=== PATIENT | male | born 1965 | race Caucasian/White ===

== ENCOUNTER 2017-07-10 10:47 | Emergency (ER) | payer BC, OTHER ==
[2017-07-10 10:57] VITALS: TEMP 98.3; BMI 28.8
--- NOTE | 2017-07-10 11:03 | PDOC ---
History of Present Illness - General History Source: Patient Exam Limitations: No Limitations - History of Present Illness Initial Comments: 07/10/17 11:39 The patient is a 52 year old male, with significant past medical history of HLD , who presents to the emergency room complaining of 2 hours of epigastric pain that started while eating a BLT with turkey giordano this morning for breakfast. The abdominal pain is nonradiating. He notes that this pain sometimes occurs after eating fatty food. Denies fever, chills, nausea, vomiting. Denies diarrhea. Denies chest pain, SOB. Denies any urinary symptoms. Allergies: Penicillin Social history: tobacco use. Occasional alcohol use. <Anusha Pride - Last Filed: 07/10/17 13:40> <Betty Juares - Last Filed: 07/10/17 13:48> - General Chief Complaint: Pain Stated Complaint: STOMACH PAIN Time Seen by Provider: 07/10/17 11:01 Past History <Anusha Pride - Last Filed: 07/10/17 13:40> - Past Medical History Anemia: No Asthma: No Cancer: No Cardiac Disorders: No CVA: No COPD: No CHF: No Dementia: No Diabetes: No GI Disorders: No Disorders: No HTN: No Hypercholesterolemia: Yes Liver Disease: No Seizures: No Thyroid Disease: No - Surgical History Abdominal Surgery: No Appendectomy: Yes Cardiac Surgery: No Cholecystectomy: No Lung Surgery: No Neurologic Surgery: No Orthopedic Surgery: No - Psycho/Social/Smoking Cessation Hx Anxiety: Yes Suicidal Ideation: No Smoking History: Current every day smoker Have you smoked in the past 12 months: Yes Number of Cigarettes Smoked Daily: 30 Information on smoking cessation initiated: No 'Breaking Loose' booklet given: 09/11/15 Hx Alcohol Use: No Drug/Substance Use Hx: No Substance Use Type: None Hx Substance Use Treatment: No <Betty Juares - Last Filed: 07/10/17 13:48> - Past Medical History Allergies/Adverse Reactions: Allergies Allergy/AdvReac Type Severity Reaction Status Date / Time Penicillins Allergy Verified 07/10/17 10:57 Home Medications: Ambulatory Orders Fenofibrate,Micronized [Fenofibrate] 43 mg PO DAILY 12/12/12 Aspirin [ASA -] 81 mg PO DAILY #10 02/23/13 Review of Systems - Review of Systems Able to Perform ROS?: Yes Comments:: 07/10/17 11:39 GENERAL/CONSTITUTIONAL: No fever or chills. No weakness. HEAD, EYES, EARS, NOSE AND THROAT: No change in vision. No ear pain or discharge. No sore throat. GASTROINTESTINAL: +epigastric pain. No nausea, vomiting, diarrhea or constipation. GENITOURINARY: No dysuria, frequency, or change in urination. CARDIOVASCULAR: No chest pain or shortness of breath. RESPIRATORY: No cough, wheezing, or hemoptysis. MUSCULOSKELETAL: No joint or muscle swelling or pain. No neck or back pain. SKIN: No rash NEUROLOGIC: No headache, vertigo, loss of consciousness, or change in strength/ sensation. ENDOCRINE: No increased thirst. No abnormal weight change. HEMATOLOGIC/LYMPHATIC: No anemia, easy bleeding, or history of blood clots. ALLERGIC/IMMUNOLOGIC: No hives or skin allergy. <Anusha Pride - Last Filed: 07/10/17 13:40> *Physical Exam - Vital Signs Last Vital Signs Temp Pulse Resp BP Pulse Ox 98.3 F 97 H 18 149/97 99 07/10/17 10:53 07/10/17 10:53 07/10/17 10:53 07/10/17 10:53 07/10/17 10:53 - Physical Exam Comments: 07/10/17 11:40 Constitutional: Awake, alert, oriented. Appears uncomfortable. Head: Normocephalic. Atraumatic Eyes: PERRL. EOMI. Conjunctivae are not pale. ENT: Mucous membranes are moist and intact. Posterior pharynx without exudates or erythema. Uvula midline. Neck: Supple. Full ROM. No lymphadenopathy. Cardiovascular: Regular rate. Regular rhythm. S1, S2 regular. Distal pulses are 2+ and symmetric. Pulmonary/Chest: No evidence of respiratory distress. Clear to auscultation bilaterally No wheezing, rales or rhonchi. Abdominal: +Ames sign. +epigastric tenderness and umbilical tenderness. Soft and nondistended. No rebound, guarding or rigidity. No organomegaly. No palpable masses. Good bowel sounds. Back: No CVA tenderness. Musculoskeletal: No edema. No cyanosis. No clubbing. Full range of motion in all extremities. Nocalf tenderness. Radial/pedal pulses are intact and 2+ bilaterally Skin: Skin is warm and dry. No petechiae. No purpura. Neurological: Alert and oriented to person, place, and time. Cranial nerves II -XII are grossly intact. Normal speech. Strength is grossly symmetric. No sensory deficits. Psychiatric: Good eye contact. Normal interaction, affect and behavior. <Anusha Pride - Last Filed: 07/10/17 13:40> - Vital Signs Last Vital Signs Temp Pulse Resp BP Pulse Ox 98.3 F 97 H 18 149/97 99 07/10/17 10:53 07/10/17 10:53 07/10/17 10:53 07/10/17 10:53 07/10/17 10:53 <Betty Juares - Last Filed: 07/10/17 13:48> Heart Score/ECG Review - ECG Intrepretation Comment:: 07/10/17 11:47 sinus at 91, nl axis, nl intervals, t wave inversions III, early repol anteriorly, no acute changes <Betty Juares - Last Filed: 07/10/17 13:48> ED Treatment Course - LABORATORY CBC & Chemistry Diagram: 07/10/17 11:30 07/10/17 11:30 - RADIOLOGY Radiograph Interpretation: 07/10/17 12:53 EXAM#: TYPE/EXAM: RESULT: [id number] US/ABDOMEN US -LIMITED HISTORY PROVIDED: Right upper quadrant pain. Real time examination of the abdomen demonstrates the following: The gallbladder is normal in size and free of calculi with no evidence of intra or extrahepatic biliary duct dilatation. The liver is normal in size. It is hyperechoic in texture consistent with diffuse fatty infiltration. There is a lobulated cyst within the left lobe measuring 3.1 x 2.8 x 2.1 cm and a smaller right lobe cyst measuring 2.1 x 1.9 x 1.9 cm. No solid intrahepatic masses are identified. The pancreas is normal in size and texture with no pancreatic masses identified. There is no evidence of hydronephrosis or acute abnormalities of the right kidney. There is no evidence of AAA. The IVC is patent. IMPRESSION: Diffuse fatty infiltration of the liver. Reported By: Angelo Engel MD 07/10/17 1240 - Medications Given in the ED: ED Medications Discontinued Medications Generic Name Dose Route Start Last Admin Trade Name Milla PRN Reason Stop Dose Admin Morphine Sulfate 4 mg 07/10/17 11:15 07/10/17 11:36 Morphine Injection - IVPUSH 07/10/17 11:16 4 mg ONCE ONE Administration Ondansetron HCl 4 mg 07/10/17 11:15 07/10/17 11:36 Zofran Injection IVPUSH 07/10/17 11:16 4 mg ONCE ONE Administration Sodium Chloride 1,000 ml 07/10/17 11:15 07/10/17 11:36 Normal Saline - IV 07/10/17 11:16 1,000 ml ONCE ONE Administration <Anusha Pride - Last Filed: 07/10/17 13:40> - LABORATORY CBC & Chemistry Diagram: 07/10/17 11:30 07/10/17 11:30 <Betty Juares - Last Filed: 07/10/17 13:48> Medical Decision Making - Medical Decision Making 07/10/17 13:40 Reeval - belly is soft nontender No complaints at this time No abdominal pain. No nausea, vomiting, diarrhea. Discussed lab and imaging results with him Discussed follow up with gastroenterology. sees Dr. Seaman and agreed to follow up with him. <Anusha Pride - Last Filed: 07/10/17 13:40> - Medical Decision Making 07/10/17 11:52 a/p: 52yo male with acute onset of mid abd pain after eating a BLT -concern for cholecystitis vs pancreatitis vs gastritis -labs -RUQ u/s -ekg -ua -ivf hydration, pain control 07/10/17 13:47 discussed all lab and imaging results. pt without pain at this time. will follow with PMD dr. michelle and with dr. yoo. discussed all reasons to return to the ED and reasons for follow up. <Betty Juares - Last Filed: 07/10/17 13:48> *DC/Admit/Observation/Transfer - Attestations Scribe Attestion: 07/10/17 11:40 Documentation prepared by CARMELO Segundo, acting as medical screener for Betty Juares DO. <Anusha Pride - Last Filed: 07/10/17 13:40> - Discharge Dispostion Admit: No - Attestations Physician Attestion: 07/10/17 13:39 I, Dr. Betty Juares, DO, attest that this document has been prepared under my direction and personally reviewed by me in its entirety. I further attest, that it accurately reflects all work, treatment, procedures and medical decision -making performed by me. <Betty Juares - Last Filed: 07/10/17 13:48> Diagnosis at time of Disposition: Abdominal pain, Fatty liver - Discharge Dispostion Disposition: HOME Condition at time of disposition: Stable - Referrals Referrals: Casandra Seaman MD [Staff Physician] - - Patient Instructions Printed Discharge Instructions: DI for Abdominal Pain-Adult Additional Instructions: Please follow up with your PMD and the GI specialist. Please return to the ED with any further concerns. - Post Discharge Activity Work/School Note: Back to Work
[2017-07-10] MEDS ORDERED: morphine CARPU-JECT 4 MG/1 ML DISP.SYRIN IVPUSH ONE (11:15)
[2017-07-10] MEDS ORDERED: SODIUM CHLORIDE 0.9% 1000 ML INFUS.BAG IV ONE (11:15)
[2017-07-10] MEDS ORDERED: ONDANSETRON 4 MG/2 ML VIAL IVPUSH ONE (11:15)
[2017-07-10] MEDS ORDERED: ONDANSETRON 4 MG/2 ML VIAL ONE (11:27)
[2017-07-10] MEDS ORDERED: morphine CARPU-JECT 4 MG/1 ML DISP.SYRIN ONE (11:27)
[2017-07-10 11:39] LABS: BASOPHIL 1.3 % (0-2.0); MCH 28.4 pg (25.7-33.7); MCHC 33.1 g/dl (32.0-35.9); MEAN PLT VOLUME 7.6 fl (7.5-11.1); NEUTROPHILS 57.8 % (42.8-82.8); PLATELET COUNT 251 K/MM3 (134-434); RDW 15.1 % (11.9-15.9); WHITE BLOOD COUNT 9.2 K/mm3 (4.0-10.0)
[2017-07-10 12:23] LABS: ANION GAP 10 (8-16); CALCIUM 9.7 mg/dL (8.5-10.1); CO2 25 mmol/L (21-32); CREATININE 1.2 mg/dL (0.7-1.3); GLUCOSE,RANDOM 104 mg/dL (74-106); SGOT/AST 17 U/L (15-37); SGPT/ALT 36 U/L (12-78)
[2017-07-10 12:24] LABS: ALK PHOS 54 U/L (45-117); BILIRUBIN,TOTAL 0.6 mg/dL (0.2-1.0); TOT PROT 7.5 g/dl (6.4-8.2)
[2017-07-10 13:11] LABS: URINE APPEARANCE CLEAR; URINE BILIRUBIN NEGATIVE (NEGATIVE); URINE BLOOD NEGATIVE (NEGATIVE); URINE COLOR LTYELLOW; URINE GLUCOSE (UA) NEGATIVE (NEGATIVE); URINE KETONE NEGATIVE (NEGATIVE); URINE LEUK ESTERASE NEGATIVE (NEGATIVE); URINE NITRITE NEGATIVE (NEGATIVE); URINE PROTEIN NEGATIVE (NEGATIVE); URINE UROBILINOGEN NEGATIVE mg/dL (0.2-1.0)
[2017-07-10 13:15] VITALS: BP 133/88; PULSE 87
--- NOTE | 2017-07-12 16:41 | EKG ---
Test Reason : Blood Pressure : / mmHG Vent. Rate : 091 BPM Atrial Rate : 091 BPM P-R Int : 162 ms QRS Dur : 096 ms QT Int : 332 ms P-R-T Axes : 054 005 019 degrees QTc Int : 408 ms NORMAL SINUS RHYTHM NORMAL ECG WHEN COMPARED WITH ECG OF 12-DEC-2012 09:33, NO SIGNIFICANT CHANGE WAS FOUND Confirmed by MARCUS SHELTON MD ([id number]) on 07/12/2017 4:41:20 PM Referred By: Confirmed By:MARCUS SHELTON MD
== END 2017-07-10 14:02 | disposition home or self-care (01) ==
LOC: JER 10:47
PROC: 3E033NZ Introduction of Analgesics, Hypnotics, Sedatives into Peripheral Vein, Percutaneous Approach (ICD-10-PCS; principal; 2017-07-10)
PROC: 3E033GC Introduction of Other Therapeutic Substance into Peripheral Vein, Percutaneous Approach (ICD-10-PCS; 2017-07-10)
DX: R10.13 Epigastric pain (principal); K76.0 Fatty (change of) liver, not elsewhere classified; E78.00 Pure hypercholesterolemia, unspecified; F17.210 Nicotine dependence, cigarettes, uncomplicated
CPT/HCPCS: 36415; 76705-TC; 80053; 81003; 83690; 85025; 93005; 93010; 99283-25

== ENCOUNTER 2017-07-14 19:56 | Inpatient (IN) | payer BC ==
[2017-07-14] MEDS ORDERED: morphine CARPU-JECT 4 MG/1 ML DISP.SYRIN ONE ×2 (20:37→22:24)
[2017-07-14] MEDS ORDERED: ONDANSETRON 4 MG/2 ML VIAL ONE (20:37)
[2017-07-14 20:46] LABS: EOSINOPHIL 4.1 % (0-4.5); MCH 28.5 pg (25.7-33.7); MCHC 33.4 g/dl (32.0-35.9); MEAN CELL VOLUME 85.2 fl (80-96); MEAN PLT VOLUME 7.8 fl (7.5-11.1); NEUTROPHILS 51.1 % (42.8-82.8); PLATELET COUNT 311 K/MM3 (134-434); RDW 14.9 % (11.9-15.9); WHITE BLOOD COUNT 11.9 K/mm3 (4.0-10.0)
[2017-07-14 20:58] LABS: INR 0.99 (0.82-1.09); PROTHROMBIN TIME (PATIENT) 10.9 SEC (9.98-11.88)
--- NOTE | 2017-07-14 21:02 | PDOC ---
History of Present Illness - General Chief Complaint: Pain Stated Complaint: PAIN ACUTE Time Seen by Provider: 07/14/17 20:31 History Source: Patient Exam Limitations: No Limitations - History of Present Illness Initial Comments: This is a 52 yom with h/o HLD, NAFLD, and appendectomy who presents with 10/10 constant sharp non-radiating upper abdominal pain since 6:30 pm today. He was resting at the onset of pain and had not eaten for hours beforehand. He has tried Tums and Gas-Ex since the onset without relief. He has additionally had more gas than normal today, and is nauseated now but has not vomited. He denies any particularly fatty meals recently. He had a similar episode 5 days ago for which he was seen here in the ED, had basic labs and an abdominal ultrasound, and no obvious cause was found. His pain resolved here with morphine and he was asymptomatic until this evening. He has not followed up with his PCP's office or gastroenterology yet. He denies any recent fever, chills, vomiting, diarrhea , constipation, black or white or bloody stool, chest pain, shortness of breath , back pain, testicular pain/swelling/lumps, burning on urination, blood in the urine, strange smells to the urine, urinary frequency, abdominal bulges or lumps , or other recent symptoms. Past History - Past Medical History Allergies/Adverse Reactions: Allergies Allergy/AdvReac Type Severity Reaction Status Date / Time Penicillins Allergy Verified 07/14/17 20:01 Home Medications: Ambulatory Orders Fenofibrate,Micronized [Fenofibrate] 43 mg PO DAILY 12/12/12 Aspirin [ASA -] 81 mg PO DAILY #10 12/17/12 Anemia: No Asthma: No Cancer: No Cardiac Disorders: No CVA: No COPD: No CHF: No Dementia: No Diabetes: No GI Disorders: No Disorders: No HTN: No Hypercholesterolemia: Yes Liver Disease: No Seizures: No Thyroid Disease: No - Surgical History Abdominal Surgery: No Appendectomy: Yes Cardiac Surgery: No Cholecystectomy: No Lung Surgery: No Neurologic Surgery: No Orthopedic Surgery: No - Suicide/Smoking/Psychosocial Hx Smoking History: Current every day smoker Have you smoked in the past 12 months: Yes Number of Cigarettes Smoked Daily: 30 Information on smoking cessation initiated: No 'Breaking Loose' booklet given: 11/18/15 Hx Alcohol Use: No Drug/Substance Use Hx: No Substance Use Type: None Hx Substance Use Treatment: No Review of Systems - Review of Systems Constitutional: No: Chills, Fever, Unexplained wgt Loss HEENTM: No: Nose Congestion, Throat Pain Respiratory: No: Cough, Shortness of Breath Cardiac (ROS): No: Chest Pain, Palpitations ABD/GI: Yes: Nausea, Other (abdominal pain). No: Constipated, Diarrhea, Vomiting : No: Burning, Dysuria Musculoskeletal: No: Back Pain, Neck Pain Integumentary: No: Bruising, Rash Neurological: No: Headache, Numbness, Tingling, Weakness, Dizziness Endocrine: No: Unexplained Weight Gain, Unexplained Weight Loss *Physical Exam - Vital Signs Last Vital Signs Temp Pulse Resp BP Pulse Ox 98.5 F 95 H 20 149/75 98 07/14/17 20:01 07/14/17 20:01 07/14/17 20:01 07/14/17 20:01 07/14/17 20:01 - Physical Exam General Appearance: Yes: Nourished, Appropriately Dressed, Mild Distress, Other (mildly diaphoretic) HEENT: positive: EOMI, Normal Voice, Hearing Grossly Normal. negative: Scleral Icterus (R), Scleral Icterus (L), Nasal Congestion Neck: positive: Trachea midline, Supple. negative: Tender, Rigid Respiratory/Chest: positive: Lungs Clear, Normal Breath Sounds. negative: Respiratory Distress, Crackles, Rhonchi, Stridor, Wheezing Cardiovascular: positive: Regular Rhythm, Regular Rate. negative: Murmur Gastrointestinal/Abdominal: positive: Normal Bowel Sounds, Tender (moderate epigastric and RUQ tenderness, positive Nina's sign, abdomen protuberant which does limit the exam but no obvious midline pulsatile mass or organomegaly) , Soft. negative: Guarding Musculoskeletal: positive: Normal Inspection. negative: Decreased Range of Motion, Vertebral Tenderness Extremity: positive: Normal Capillary Refill, Normal Inspection, Normal Range of Motion. negative: Tender, Cyanosis Integumentary: positive: Normal Color, Dry, Warm. negative: Erythema, Rash, Bruising Neurologic: positive: carton wrapper II-XII NML intact (grossly), Fully Oriented, Alert, Normal Mood/Affect, Normal Response, Motor Strength 5/5 Heart Score/ECG Review - History History: Slightly suspicious - Electrocardiogram EKG: Normal - Age Age: 45-65 - Risk Factors Risk Factors Heart Score: Yes Hx Hypercholesterolemia Based on the list above the patient has:: 1-2 risk factors - Troponin Troponin: </= normal limit - Score Heart Score - Total: 2 #1 ECG reviewed & interpreted by me at: 00:00 NSR, rate 78, VGy=370, normal EKG ED Treatment Course - LABORATORY CBC & Chemistry Diagram: 07/14/17 20:30 07/14/17 20:30 - ADDITIONAL ORDERS Additional order review: 07/14/17 20:30 RBC 5.58 MCV 85.2 MCHC 33.4 RDW 14.9 MPV 7.8 Neutrophils % 51.1 Lymphocytes % 34.8 D Monocytes % 9.0 Eosinophils % 4.1 Basophils % 1.0 - RADIOLOGY Radiology Studies Ordered: Category Date Time Status ABDOMEN & PELVIS CT WITH CONTR [CT] Stat CT Scan 07/14/17 20:[address] abdomen/pelvis with PO and IV contrast does show cholelithiasis with cholecystitis Medical Decision Making - Medical Decision Making 52 yom with h/o HLD p/w recurrence of epigastric abdominal pain and nausea similar to ED visit 5d ago. Had US gallbladder and labs at that time which were unremarkable, sxs resolved with morphine in ED that visit. Today was resting at onset, had not eaten recently. On exam abdomen is protuberant but normoactive bowel sounds, epigastric and RUQ ttp, no obvious pulsatile masses. Ordered is IV morphine 4 mg and Zofran. 07/14/17 21:31 DDX includes but is not limited to PUD, gastritis, cholecystitis, cholangitis, pancreatitis, SBO, AAA, diverticulitis, renal stone, UTI/pyelo. Ordered is CT abdomen/pelvis with IV and PO contrast. 07/15/17 01:01 CBCD and CMP result with mild WBC elevation, Cr 1.4, NS 1000 cc ordered. Pt also given second dose of morphine for recurrence of pain. Ativan ordered for CT study as patient gets claustrophobic. 07/15/17 04:42 Abdomen/Pelvis CT suggests cholelithiasis with cholecystitis. Patient is admitted to [facility] and surgery consult will be placed. The patient is given Levaquin-Flagyl here in the ED. *DC/Admit/Observation/Transfer Diagnosis at time of Disposition: Cholecystitis with cholelithiasis Qualifiers: Cholelithiasis location: gallbladder Cholecystitis acuity: unspecified acuity Biliary obstruction: without biliary obstruction Qualified Code(s): K80.00 - Calculus of gallbladder with acute cholecystitis without obstruction - Discharge Dispostion Condition at time of disposition: Guarded Admit: Yes - Referrals Referrals: Stephani Macedo MD [Primary Care Provider] -
[2017-07-14 21:23] LABS: ANION GAP 7 (8-16); CO2 25 mmol/L (21-32); CREATININE 1.4 mg/dL (0.7-1.3); GLUCOSE,RANDOM 124 mg/dL (74-106); SGOT/AST 19 U/L (15-37); SGPT/ALT 42 U/L (12-78)
[2017-07-14 21:26] LABS: ALK PHOS 52 U/L (45-117); BILIRUBIN,TOTAL 0.4 mg/dL (0.2-1.0); CPK 171 IU/L (39-308); TOT PROT 7.5 g/dl (6.4-8.2); TROPONIN I < 0.02 ng/ml (0.00-0.05)
[2017-07-14] MEDS ORDERED: morphine CARPU-JECT 4 MG/1 ML DISP.SYRIN IVPUSH ONE (22:16)
[2017-07-15] MEDS ORDERED: LORazepam 1 MG TABLET PO ONE (00:45)
[2017-07-15] MEDS ORDERED: SODIUM CHLORIDE 1,000 ML IV STA (01:10)
[2017-07-15] MEDS ORDERED: LORazepam 0.5 MG TABLET ONE (01:17)
[2017-07-15] MEDS ORDERED: LEVOFLOXACIN 750 MG IVPB 150 ML IVPB ONE ×2 (04:47→06:22)
[2017-07-15] MEDS ORDERED: METRONIDAZOLE 500 MG PREMIXED 100 ML IVPB ONE ×2 (04:47→06:58)
[2017-07-15] MEDS ORDERED: morphine CARPU-JECT 2 MG/1 ML DISP.SYRIN IVPUSH PRN (05:15)
--- NOTE | 2017-07-15 06:04 | HP ---
CHIEF COMPLAINT: Abdominal Pain HISTORY OF PRESENT ILLNESS: Mr. Claudio is a 52yo M w/ PMHx of HLD and NAFLD who presents with 1 day of constant, sharp epigastric pain which radiated to both sides. The pain was 10/ 10 originally, but was relieved with morphine. The patient had a similar episode 5 days ago, presented to the ER, had a negative RUQ ultrasound, attributed to gastritis, but this episode is much worse. He had associated fevers last night, and nausea. Denies vomitting, diarrhea, constipation. Denies CP or SOB at rest or w/ exertion. States he is physically active, only limited by knee pain. ER course was notable for: (1) + Nina's sign (2) Tachy (95) + Elevated WBC (11.9) (3) CT abd --> suggestive of cholecystitis w/ gallstones (4) IV Morphine Recent Travel: Denies PAST MEDICAL HISTORY: HLD, NAFLD PAST SURGICAL HISTORY: L partial knee replacement, Appendectomy Social History: Lives w/ , works in sanitation Smokin - 1.5ppd smoker Alcohol: Occasional Drugs: Denies Family History: Noncontributory Allergies: Penicillins Allergy (Verified 07/14/17 20:01) HOME MEDICATIONS: Home Medications Medication Instructions Recorded Fenofibrate,Micronized 43 mg PO DAILY 12/12/12 [Fenofibrate] Aspirin [ASA -] 81 mg PO DAILY #10 12/17/12 REVIEW OF SYSTEMS CONSTITUTIONAL: Absent: fever, chills, diaphoresis, generalized weakness, malaise, loss of appetite, weight change HEENT: Absent: rhinorrhea, nasal congestion, throat pain, throat swelling, difficulty swallowing, mouth swelling, ear pain, eye pain, visual changes CARDIOVASCULAR: Absent: chest pain, syncope, palpitations, irregular heart rate, lightheadedness , peripheral edema RESPIRATORY: Absent: cough, shortness of breath, dyspnea with exertion, orthopnea, wheezing, stridor, hemoptysis GASTROINTESTINAL: Absent: vomiting, diarrhea, constipation, melena, hematochezia Present: abdominal pain, nausea GENITOURINARY: Absent: dysuria, frequency, urgency, hesitancy, hematuria, flank pain, genital pain MUSCULOSKELETAL: Absent: myalgia, arthralgia, joint swelling, back pain, neck pain SKIN: Absent: rash, itching, pallor HEMATOLOGIC/IMMUNOLOGIC: Absent: easy bleeding, easy bruising, lymphadenopathy, frequent infections ENDOCRINE: Absent: unexplained weight gain, unexplained weight loss, heat intolerance, cold intolerance NEUROLOGIC: Absent: headache, focal weakness or paresthesias, dizziness, unsteady gait, seizure, mental status changes, bladder or bowel incontinence PSYCHIATRIC: Absent: anxiety, depression, suicidal or homicidal ideation, hallucinations. PHYSICAL EXAMINATION Vital Signs - 24 hr 07/14/17 20:01 Temperature 98.5 F Pulse Rate 95 H Respiratory 20 Rate Blood Pressure 149/75 O2 Sat by Pulse 98 Oximetry (%) GEN: AAOx3, NAD, Lying comfortably, states pain has improved w/ morphine HEENT: PERRLA, EOMi, No cervical LAD CV: S1, S2, RRR LUNG: CTABL ABD: Distended, tenderness to deep palpation in epigastrium, neg [place], normoactive BS MSK: No edema, no erythema, 2+ pulses NEURO: CN 2-12 intact. Facial symmetry intact. No sensation deficits. MSK 5/5, Reflexes 2+ Laboratory Results - last 24 hr 07/14/17 07/14/17 07/14/17 20:30 20:30 20:30 WBC 11.9 H RBC 5.58 Hgb 15.9 Hct 47.5 MCV 85.2 MCH 28.5 MCHC 33.4 RDW 14.9 Plt Count 311 D MPV 7.8 Neutrophils % 51.1 Lymphocytes % 34.8 D Monocytes % 9.0 Eosinophils % 4.1 Basophils % 1.0 PT with INR 10.90 INR 0.99 Sodium 137 Potassium 3.8 Chloride 105 Carbon Dioxide 25 Anion Gap 7 L BUN 18 Creatinine 1.4 H Creat Clearance w eGFR 53.01 Random Glucose 124 H Calcium 9.0 Total Bilirubin 0.4 D AST 19 ALT 42 Alkaline Phosphatase 52 Creatine Kinase 171 Creatine Kinase Index 0.5 CK-MB (CK-2) 0.863 Troponin I < 0.02 Total Protein 7.5 Albumin 4.0 Lipase 07/14/17 20:30 WBC RBC Hgb Hct MCV MCH MCHC RDW Plt Count MPV Neutrophils % Lymphocytes % Monocytes % Eosinophils % Basophils % PT with INR INR Sodium Potassium Chloride Carbon Dioxide Anion Gap BUN Creatinine Creat Clearance w eGFR Random Glucose Calcium Total Bilirubin AST ALT Alkaline Phosphatase Creatine Kinase Creatine Kinase Index CK-MB (CK-2) Troponin I Total Protein Albumin Lipase 165 Active Medications Generic Name Dose Route Start Last Admin Trade Name Freq PRN Reason Stop Dose Admin Sodium Chloride 1,000 mls @ 100 mls/hr 07/15/17 05:15 07/15/17 06:19 Normal Saline - IV 100 mls/hr ASDIR KRISTINE Administration Metronidazole 100 mls @ 100 mls/hr 07/15/17 14:00 Flagyl 500mg Premixed Ivpb - IVPB Q8H-IV KRISTINE Levofloxacin 150 mls @ 100 mls/hr 07/16/17 06:00 Levaquin 750 Mg Premixed Ivpb - IVPB 07/16/17 07:29 ONCE ONE Morphine Sulfate 1 mg 07/15/17 05:15 Morphine Injection - IVPUSH Q4H PRN PAIN IMAGING: CT Abd/Pelvis w/ contrast --> Findings suggestive of cholelithiasis w/ cholecystitis ASSESSMENT/PLAN: Pt is a 52yo M w/ PMHx of HLD who presented with epigastric pain with radiological findings suggestive of cholelithiasis and cholecystitis # Cholecystitis - IV Levofloxacin 750mg daily (one time dosing) - IV Flagyl 500mg Q8H - Surgery consulted - NPO for possible surgery - IVNS @ 100cc/hr - T+S, Coags # Elevated Cr - From 1.2 --> 1.4 - F/u BMP with IVF # Hx of HLD - Hold home Fenofibrate # Preventative Health - Hold home ASA 81mg # FEN - Fluids: IVNS @ 100cc/hr - Electrolytes: WNL - Nutrition: NPO for possible surgery # Prophylaxis - DVT: Low risk - SCDs - GI: Not indicated - Deconditioning: PT ordered # Dispo - Admit to Med/surg - Await surgery reccs Case d/w Dr. Lira and Dr. Chikis Swanson MD - PGY1 Internal Medicine Visit type - Emergency Visit Emergency Visit: Yes ED Registration Date: 07/15/17 Care time: The patient presented to the Emergency Department on the above date and was hospitalized for further evaluation of their emergent condition. - New Patient This patient is new to me today: Yes Date on this admission: 07/15/17 - Critical Care Critical Care patient: No
[2017-07-15] MEDS: SODIUM CHLORIDE 1,000 ML IV SCH ×2 (06:19→10:01)
--- NOTE | 2017-07-15 06:44 | PN ---
Teaching Attending Note Name of Resident: Pao Swanson ATTENDING PHYSICIAN STATEMENT I saw and evaluated the patient. I reviewed the resident's note and discussed the case with the resident. I agree with the resident's findings and plan as documented. SUBJECTIVE: 52 year old male presents 1 day history of abdominal pain 08/03. ER course was notable for: (1) + Nina's sign (2) Tachy (95) + Elevated WBC (11.9) (3) CT abd --> suggestive of cholecystitis w/ gallstones (4) IV Morphine PAST MEDICAL HISTORY: HLD PAST SURGICAL HISTORY: L partial knee replacement, Appendectomy Social History: Lives w/ , works in [employer] department Smokin - 1.5ppd smoker Alcohol: Occasional Drugs: Denies Family History: Noncontributory Allergies: Penicillins Allergy OBJECTIVE: Vital Signs Temperature 97.9 F 07/15/17 01:56 Pulse Rate 97 H 07/15/17 05:10 Respiratory Rate 20 07/15/17 05:10 Blood Pressure 144/99 07/15/17 05:10 O2 Sat by Pulse Oximetry (%) 99 07/15/17 05:10 HEENT: PERRLA, EOMi, No cervical LAD CV: S1, S2, RRR LUNG: CTABL ABD: Distended, mild RUQ tenderness MSK: No edema, no erythema, 2+ pulses CBC, BMP 07/14/17 20:30 07/14/17 20:30 CT abd - acute demarcus ASSESSMENT AND PLAN: 1. Acute calculous cholecystitis - pain management - NPO -IVAB - surgery evaluation
[2017-07-15 09:17] LABS: MCH 28.7 pg (25.7-33.7); MCHC 33.4 g/dl (32.0-35.9); MEAN CELL VOLUME 85.9 fl (80-96); MEAN PLT VOLUME 7.7 fl (7.5-11.1); PLATELET COUNT 231 K/MM3 (134-434); RDW 15.2 % (11.9-15.9); WHITE BLOOD COUNT 8.3 K/mm3 (4.0-10.0)
[2017-07-15 09:36] LABS: INR 1.06 (0.82-1.09); PROTHROMBIN TIME (PATIENT) 11.7 SEC (9.98-11.88)
[2017-07-15 09:38] LABS: ACTIVATED PTT 30.3 SECONDS (26.9-34.4)
[2017-07-15 09:39] LABS: ANION GAP 2 (8-16); CALCIUM 9.2 mg/dL (8.5-10.1); CO2 31 mmol/L (21-32); CREATININE 1.3 mg/dL (0.7-1.3); GLUCOSE,RANDOM 97 mg/dL (74-106)
[2017-07-15 11:28] VITALS: BMI 28.2
--- NOTE | 2017-07-15 13:17 | PN ---
Physical Exam: SUBJECTIVE: Mr. Claudio is a 52yo M w/ PMHx of HLD and NAFLD who presents with 1 day history of constant, sharp med epigastric pain which radiated to all over his abdomen. The pain was 10/10 originally, but was relieved with morphine to 7/10. The patient had a similar episode 5 days ago, presented to the ER, had a negative RUQ ultrasound, attributed to gastritis, but this episode is much worse. He had associated fevers last night, and nausea. Denies vomitting, diarrhea, constipation. Denies CP or SOB, palpitation. OBJECTIVE: Vital Signs Period Temp Pulse Resp BP Sys/Fernandez Pulse Ox Last 24 Hr 98.0 F-98.5 F 79-97 18-20 120-144/79-99 98-99 GENERAL: The patient is awake, alert, and fully oriented, in no acute distress. HEAD: Normal with no signs of trauma. EYES: conjunctiva clear. No ptosis. ENT: moist mucous membranes. LUNGS: Breath sounds equal, clear to auscultation bilaterally, no wheezes, no crackles, no accessory muscle use. HEART: Regular rate and rhythm, S1, S2 without murmur, rub or gallop. ABDOMEN: Soft, nontender, nondistended, normoactive bowel sounds, no guarding, no rebound. EXTREMITIES: warm, well-perfused, no edema. NEUROLOGICAL: good mentation SKIN: Warm, dry, no rashes or lesions noted Laboratory Results - last 24 hr 07/15/17 07/15/17 07/15/17 08:55 08:55 08:55 WBC 8.3 D RBC 5.62 H Hgb 16.1 Hct 48.3 MCV 85.9 MCH 28.7 MCHC 33.4 RDW 15.2 Plt Count 231 D MPV 7.7 PT with INR 11.70 INR 1.06 PTT (Actin FS) 30.3 Sodium 137 Potassium 4.8 D Chloride 104 Carbon Dioxide 31 D Anion Gap 2 L BUN 13 D Creatinine 1.3 Random Glucose 97 D Calcium 9.2 Blood Type Antibody Screen 07/15/17 08:55 WBC RBC Hgb Hct MCV MCH MCHC RDW Plt Count MPV PT with INR INR PTT (Actin FS) Sodium Potassium Chloride Carbon Dioxide Anion Gap BUN Creatinine Random Glucose Calcium Blood Type O POSITIVE Antibody Screen Negative Active Medications Generic Name Dose Route Start Last Admin Trade Name Freq PRN Reason Stop Dose Admin Sodium Chloride 1,000 mls @ 100 mls/hr 07/15/17 05:15 07/15/17 10:01 Normal Saline - IV 100 mls/hr ASDIR KRISTINE Administration Metronidazole 100 mls @ 100 mls/hr 07/15/17 14:00 Flagyl 500mg Premixed Ivpb - IVPB Q8H-IV KRISTINE Levofloxacin 150 mls @ 100 mls/hr 07/16/17 06:00 Levaquin 750 Mg Premixed Ivpb - IVPB 07/16/17 07:29 ONCE ONE Morphine Sulfate 1 mg 07/15/17 05:15 Morphine Injection - IVPUSH Q4H PRN PAIN CBC, BMP 07/15/17 08:55 07/15/17 08:55 Hepatic Panel Total Bilirubin 0.4 mg/dL (0.2-1.0) D 07/14/17 20:30 AST 19 U/L (15-37) 07/14/17 20:30 ALT 42 U/L (12-78) 07/14/17 20:30 Alkaline Phosphatase 52 U/L (45-117) 07/14/17 20:30 Albumin 4.0 g/dl (3.4-5.0) 07/14/17 20:30 IMAGING: CT Abd/Pelvis w/ contrast: Findings suggestive of cholelithiasis w/ cholecystitis (gall bladder distended, wall thickening,calcified stone in the gallbladder neck, hepatic statosis) liver and spleen with normal size ASSESSMENT/PLAN: Pt is a 52yo M w/ PMHx of HLD who presented with epigastric pain with radiological findings suggestive of cholelithiasis and cholecystitis # Cholecystitis, Acute * IV Levofloxacin 750mg daily (one time dosing) * IV Flagyl 500mg Q8H * Surgery consulted * NPO for possible surgery * IVNS @ 100cc/hr * T+S, Coags * reglan for nausea * Morhine 1 g ivpush q4hr PRN for pain # ELIANE leikely 2/2 dehydration due low oral intake vs hypovolemia vs infection * From 1.2 to 1.4 * F/u BMP with IVF * # Hx of HLD * Hold home Fenofibrate * Hold home ASA 81mg # NAFLD, * f/u as out patient # FEN * Fluids: IVNS @ 100cc/hr * Electrolytes: WNL * Nutrition: NPO for possible surgery # Prophylaxis * DVT: Low risk - SCDs * GI: Not indicated * Deconditioning: PT ordered # Dispo * Admit to Med/surg * Await surgery reccs Visit type - Emergency Visit Emergency Visit: Yes ED Registration Date: 07/15/17 Care time: The patient presented to the Emergency Department on the above date and was hospitalized for further evaluation of their emergent condition. - New Patient This patient is new to me today: Yes Date on this admission: 07/15/17 - Critical Care Critical Care patient: No
--- NOTE | 2017-07-15 13:59 | PN ---
Teaching Attending Note Name of Resident: Rinku Hood ATTENDING PHYSICIAN STATEMENT I saw and evaluated the patient. I reviewed the resident's note and discussed the case with the resident. I agree with the resident's findings and plan as documented. SUBJECTIVE:states pain has improved. continues to have mild epigastric tenderness. requesting to eat. denies Cp, SOB, fever, chills, N/V/C/D OBJECTIVE: Last Vital Signs Temp Pulse Resp BP Pulse Ox 98.0 F 79 18 120/80 98 07/15/17 10:34 07/15/17 10:34 07/15/17 10:34 07/15/17 10:34 07/15/17 09:00 General NAD CV S1 S2 RRR no murmur/rub/gallop Lungs CTA B/L no wheezing/rales/rhonchi ABdomen soft +epigastric tenderness no rebound or guarding. neg becker sign ASSESSMENT AND PLAN: 52yo M with PMH dyslipidemia and NAFLD presented with epigastric tenderness and found to have acute cholecysitits 1. Acute Cholecystitis- NPO for OR today for laprascopic cholecystectomy. cont IVF, Levaquin and Flagyl day 2. pain and nausea control 2. ELIANE-likley dehydration. improved. cont IVF. baseline Cr 1.2. avoid nephrotoxic agents 3. NAFLD 4. DVT ppx- EAM
[2017-07-15] MEDS ORDERED: METOCLOPRAMIDE HCL INJECTION 10 MG/2 ML VIAL IVPB ONE (14:11)
[2017-07-15] MEDS ORDERED: ONDANSETRON 4 MG/2 ML VIAL ONE (14:21)
[2017-07-15] MEDS: METRONIDAZOLE 500 MG PREMIXED 100 ML IVPB SCH ×2 (15:09→18:42)
--- NOTE | 2017-07-15 15:35 | CONSULT ---
Consult Consult Specialty:: Surgery Reason for Consultation:: Abdominal pain - History of Present Illness History of Present Illness: 52 male presents for epigastric/RUQ abdominal pain x 1-2 days No fevers + Nausea 1st episode - History Source History Provided By: Patient, Medical Record Limitations to Obtaining History: No Limitations - Alcohol/Substance Use Hx Alcohol Use: No - Smoking History Smoking history: Current every day smoker Have you smoked in the past 12 months: Yes Aproximately how many cigarettes per day: 30 Home Medications - Allergies Allergies/Adverse Reactions: Allergies Allergy/AdvReac Type Severity Reaction Status Date / Time Penicillins Allergy Verified 07/14/17 20:01 - Home Medications Home Medications: Ambulatory Orders Fenofibrate,Micronized [Fenofibrate] 43 mg PO DAILY 12/12/12 Aspirin [ASA -] 81 mg PO DAILY #10 12/17/12 Family Disease History - Family Disease History Family History: Unremarkable Review of Systems - Review of Systems Constitutional: denies: Chills, Fever HENT: reports: No Symptoms Neck: reports: No Symptoms Cardiovascular: denies: Chest Pain Respiratory: denies: Cough Gastrointestinal: reports: Abdominal Pain, Nausea. denies: Diarrhea Neurological: denies: Change in LOC Pain Intensity: 4 Physical Exam Vital Signs: Vital Signs Temperature 98.4 F 07/15/17 15:12 Pulse Rate 83 07/15/17 15:12 Respiratory Rate 16 07/15/17 15:12 Blood Pressure 122/78 07/15/17 15:12 O2 Sat by Pulse Oximetry (%) 98 07/15/17 09:00 Constitutional: Yes: Calm HENT: Yes: WNL Neck: Yes: Supple Cardiovascular: Yes: Regular Rate and Rhythm Respiratory: Yes: CTA Bilaterally Gastrointestinal: Yes: Soft, Tenderness (RUQ), Tenderness, Epigastrium Extremities: Yes: WNL Neurological: Yes: Alert, Oriented Labs: CBC, BMP 07/15/17 08:55 07/15/17 08:55 Imaging - Results Cat Scan: Report Reviewed, Image Reviewed Problem List - Problems (1) Cholecystitis with cholelithiasis Code(s): K80.10 - CALCULUS OF GALLBLADDER W CHRONIC CHOLECYST W/O OBSTRUCTION Qualifiers: Cholelithiasis location: gallbladder Cholecystitis acuity: unspecified acuity Biliary obstruction: without biliary obstruction Qualified Code(s ): K80.00 - Calculus of gallbladder with acute cholecystitis without obstruction (2) Acute cholecystitis due to biliary calculus Code(s): K80.00 - CALCULUS OF GALLBLADDER W ACUTE CHOLECYST W/O OBSTRUCTION Assessment/Plan 52 male with acute cholecystitis NPO IV fluids For laparoscopic possible open cholecystectomy Understands and agrees
[2017-07-15] MEDS ORDERED: MIDAZOLAM HCL 2 MG/2 ML SINGLE DOSE VIAL ONE (19:24)
[2017-07-15] MEDS ORDERED: PROPOFOL 20 ML ONE ×3 (19:24→20:35)
[2017-07-15] MEDS ORDERED: ONDANSETRON 4 MG/2 ML VIAL IVPUSH PRN ×2 (19:37→21:56)
[2017-07-15] MEDS ORDERED: oxyCODONE HCL 5 MG TABLET PO PRN ×3 (19:37→21:56)
[2017-07-15] MEDS ORDERED: HYDROmorphone HCL CARPU-JECT 1 MG/1 ML DISP.SYRIN IVPUSH PRN (19:37)
[2017-07-15] MEDS ORDERED: LACTATED RINGERS SOLUTION 1,000 ML IV SCH (19:45)
[2017-07-15] MEDS ORDERED: DESFLURANE GAS 240 ML BOTTLE IH ONE (19:50)
[2017-07-15] MEDS ORDERED: HYDROCORTISONE SOD SUCCINATE 2 ML ONE (20:06)
[2017-07-15] MEDS ORDERED: HYDROmorphone HCL/PF 1 MG/ML VIAL (FOR PYXIS CHARGING ONLY) ONE (20:06)
[2017-07-15] MEDS ORDERED: GLYCOPYRROLATE 0.2 MG/1 ML VIAL ONE ×2 (20:07→21:13)
[2017-07-15] MEDS ORDERED: NEOSTIGMINE METHYLSULFATE 0.5 MG/ML - 10 ML MDV ONE (20:07)
[2017-07-15] MEDS ORDERED: DEXAMETHASONE SOD PHOSPHATE 4 MG/1 ML VIAL ONE (20:09)
[2017-07-15] MEDS ORDERED: BUPIVACAINE HCL/PF (5 MG/ML) 30 ML VIAL IJ ONE (21:03)
--- NOTE | 2017-07-15 21:26 | OP ---
Operative Note - Note: Operative Date: 07/15/17 Pre-Operative Diagnosis: Acute cholecystitis Operation: Laparoscopic cholecystectomy, umbilical hernia repair Findings: Umbilical hernia, distended, inflamed gallbladder Post-Operative Diagnosis: Other (Acute cholecystitis, umbilical hernia) Surgeon: Panda Cevallos Hoistman: Lois Carmen Anesthesia: General Specimens Removed: Gallbladder Estimated Blood Loss (mls): 10 Operative Report Dictated: Yes
[2017-07-15] MEDS ORDERED: SODIUM CHLORIDE 1,000 ML IV SCH (21:30)
--- NOTE | 2017-07-15 21:46 | SURG ---
Surgery Greens Laborer Note Greens Laborer: Lois Carmen PA-C Date of Service: 07/15/17 Diagnosis: Acute cholecystitis Procedure: Laparoscopic cholecystectomy, umbilical hernia repair I was present for the entirety of the operative procedure. For further detail, please refer to operative report. Visit type - Case Type Case Type: ED Admission - Emergency Emergency Visit: Yes ED Registration Date: 07/15/17 Care time: The patient presented to the Emergency Department on the above date and was hospitalized for further evaluation of their emergent condition. - New patient This patient is new to me today: Yes Date on this admission: 07/15/17 - Critical Care Critical Care patient: No
[2017-07-15] MEDS ORDERED: HYDROmorphone HCL CARPU-JECT 2 MG/1 ML DISP.SYRIN ONE (22:54)
[2017-07-15] MEDS: HYDROmorphone HCL CARPU-JECT 1 MG/1 ML DISP.SYRIN IVPB PRN (22:55)
[2017-07-16] MEDS: METRONIDAZOLE 500 MG PREMIXED 100 ML IVPB SCH ×2 (01:27→10:38)
[2017-07-16] MEDS: HYDROmorphone HCL CARPU-JECT 1 MG/1 ML DISP.SYRIN IVPB PRN (04:17)
[2017-07-16] MEDS ORDERED: LEVOFLOXACIN 750 MG IVPB 150 ML IVPB ONE (06:00)
[2017-07-16 07:45] LABS: MCH 28.8 pg (25.7-33.7); MCHC 33.3 g/dl (32.0-35.9); MEAN CELL VOLUME 86.5 fl (80-96); MEAN PLT VOLUME 7.7 fl (7.5-11.1); PLATELET COUNT 263 K/MM3 (134-434); RDW 15.1 % (11.9-15.9); WHITE BLOOD COUNT 10.9 K/mm3 (4.0-10.0)
[2017-07-16 08:24] LABS: ALK PHOS 55 U/L (45-117); ANION GAP 10 (8-16); BILIRUBIN,TOTAL 0.6 mg/dL (0.2-1.0); CO2 27 mmol/L (21-32); CREATININE 1.2 mg/dL (0.7-1.3); GLUCOSE,RANDOM 107 mg/dL (74-106); SGOT/AST 27 U/L (15-37); SGPT/ALT 55 U/L (12-78); TOT PROT 7.6 g/dl (6.4-8.2)
[2017-07-16 08:54] VITALS: BP 156/87; PULSE 90; TEMP 97.6
--- NOTE | 2017-07-16 09:19 | PN ---
Progress Note (short form) - Note Progress Note: POD #1 - s/p laparoscopic cholecystectomy under general anesthesia. Pt. doing well, resting comfortably in bed. No complaints. No apparent anesthetic complications noted. Continue current care.
--- NOTE | 2017-07-16 09:28 | SPEC ---
DATE OF OPERATION: 07/15/2017 SURGEON: Brigitte Cevallos MD FITTER PLACER: JORGE Mac PREOPERATIVE DIAGNOSIS: Acute cholecystitis. POSTOPERATIVE DIAGNOSIS: Acute cholecystitis and umbilical hernia. PROCEDURE: Laparoscopic cholecystectomy and umbilical hernia repair. SPECIMEN: Gallbladder. ESTIMATED BLOOD LOSS: 10 mL DRAINS: None. ANESTHESIA: GET. REASON FOR PROCEDURE: This is a 52-year-old gentleman who presents to the hospital with epigastric/right upper quadrant pain. He was found to have evidence of acute cholecystitis on imaging. Because of this, he was consented for a laparoscopic, possible open cholecystectomy. RISKS AND BENEFITS: The risks and benefits of a laparoscopic, possible open cholecystectomy were explained. These included bleeding, infection, hernia, PA, DVT, PE, injury to surrounding structures including the liver, colon, bowel, bile ducts, vessel injury, nerve injury, bile leak, and retained stones as some of the possible complications. The patient understood and signed informed consents. DESCRIPTION OF PROCEDURE: The patient was placed supine on the operating room table. The patient underwent general endotracheal intubation. The abdomen was prepped and draped in the usual sterile fashion. A timeout was performed. A periumbilical incision was made, and a 5-mm optical trocar was inserted under direct visualization with the laparoscope. Pneumoperitoneum was then established. Subsequently, a 5-mm trocar was placed in the subxiphoid area and two 5-mm trocars were placed in the right upper quadrant. The 5-mm trocar at the periumbilical region was removed and a 10-mm trocar was inserted. The patient was placed in reverse Trendelenburg, right side up position. The gallbladder was noted and was retracted cephalad and laterally. Any overlying omental adhesions were carefully dissected. The peritoneum was dissected using electrocautery. The cystic duct followed by the cystic artery was circumferentially dissected, clipped and transected. The gallbladder was removed off the liver bed using electrocautery. Hemostasis of the liver bed and surrounding area was attained using electrocautery. The gallbladder was placed in an EndoCatch bag. Copious irrigation and suction were performed until clear. The gallbladder was removed from the abdominal cavity. The fascia at the 10-mm trocar site was closed using a 0-Vicryl suture. All incision sites were irrigated and Marcaine was injected. Hemostasis of all incision sites was noted. All incision sites were closed using 4-0 Biosyn. Sterile dressings were applied. The patient tolerated the procedure well and was transferred to the recovery room in stable condition. In addition, at the beginning of the procedure, he was noted to have an umbilical hernia. This was used to place the initial trocar. At the end of the laparoscopic cholecystectomy, the umbilical hernia was repaired using a Shaun-Vahe with a 0 Vicryl suture. Patient tolerated the procedure well, was transferred to recovery room in stable condition. BRIGITTE CEVALLOS M.D. [id number]
[2017-07-16] MEDS ORDERED: LEVOFLOXACIN 500 MG IVPB 100 ML IVPB SCH (10:00)
--- NOTE | 2017-07-16 12:33 | DS ---
Physical Exam: SUBJECTIVE: Patient seen and examined at bedside. He has labaroscopic cholecystectomy yesteray. He scot any fever, chills,chest pain, SOB, abdominal pain, N/V/D/C, he is tolerating regular food. Surgery wound is clean and covered by the bandages. OBJECTIVE: Vital Signs Period Temp Pulse Resp BP Sys/Fernandez Pulse Ox Last 24 Hr 97.5 F-98.6 F 83-103 10-20 120-156/76-93 97-100 PHYSICAL EXAM GENERAL: The patient is awake, alert, and fully oriented, in no acute distress. HEAD: Normal with no signs of trauma. EYES: sclera anicteric, conjunctiva clear. ENT: moist mucous membranes. LUNGS: Breath sounds equal, clear to auscultation bilaterally, no wheezes, no crackles, no accessory muscle use. HEART: Regular rate and rhythm, S1, S2 without murmur, rub or gallop. ABDOMEN: Soft, distended, normoactive bowel sounds, no guarding, no rebound tenderness. 4 bandages on his abdomen incision.mild tenderness surrounding incisions EXTREMITIES: warm, well-perfused, no edema. NEUROLOGICAL: Normal speech, gait not observed. SKIN: Warm, dry, no rashes or lesions noted. LABS Laboratory Results - last 24 hr 07/16/17 07/16/17 06:30 06:30 WBC 10.9 H D RBC 5.78 H Hgb 16.6 Hct 50.0 H MCV 86.5 MCH 28.8 MCHC 33.3 RDW 15.1 Plt Count 263 MPV 7.7 Sodium 139 Potassium 4.6 Chloride 102 Carbon Dioxide 27 Anion Gap 10 BUN 10 D Creatinine 1.2 Creat Clearance w eGFR > 60 Random Glucose 107 H Calcium 9.0 Total Bilirubin 0.6 D AST 27 D ALT 55 D Alkaline Phosphatase 55 Total Protein 7.6 Albumin 4.0 CBC, BMP 07/16/17 06:30 07/16/17 06:30 HOSPITAL COURSE: Date of Admission:07/15/17 Date of Discharge: 07/16/17 52yo M with PMH dyslipidemia and NAFLD presented with epigastric tenderness and found to have acute cholecysitits . Gallbladder removed by laprascopic Surgery on 07/15 with no complications. patient tolerated surgery well. received abx for one day and we stoped it after the surgery as no longer necessary. counseled on risks association with pain medications, not to operate or drive heavy machinery while taking and to monitor for constipation. to increase water and fiber intake if needed. to follow instructions by surgeon on discharge plan. Patient developed ELIANE at admission likely secondary to dehydration improved with IV fluids. Cr improved from 1.4 to 1.2 at his base line. Patient will be discharged home home with PMD within a week. and surgical follow up within 2 weeks . Patient may experience a change in bowel habits.Many things affect this, including taking pain medication. If either persist, patient needs to call the surgeon office. if he developed persistent nausea or vomitting he needs to call the surgeon office. Patient will resume normal everyday activity as tolerated, We the patient to walk as often as he can. Patient Patient was informed not to drive a motor vehicle while taking prescribes narcotic pain medication. Patient will take his medicine as prescribed. If the narcotic medication is not needed for pain control, patient may take Tylenol. patient was informed to avoid all other pain medications including Advil, Ibuprofen, Motrin, Aspirin, Naprosyn, Aleve, Celebrex. Patient can continue low cholestrol low fat diet. Patient was informed to return to emergency room if he developed any fever, chills or his symptoms worsen. Answered all patient questions. case was discussed with the attending physician and the medical team. Rinku Hood MD PGY1 Internal medicine. Minutes to complete discharge: 30 Discharge Summary Reason For Visit: CHOLECYSTITIS WITH CHOLELITHIASIS Current Active Problems Acute cholecystitis due to biliary calculus (Acute) Cholecystitis with cholelithiasis (Acute) Condition: Stable - Instructions Diet, Activity, Other Instructions: [facility] Panda Cevallos M.D. [address] [place] [address],[address] [facility] [place] [id number] [place] [address] [facility] [place] [address] Robotic, Bariatric and General Surgery Postoperative Instructions for General Surgery Activity: Resume normal everyday activity as tolerated. You may walk and climb stairs without any limitation. We encourage you to walk as often as you can Do not lift anything more than 10 pounds for 8 weeks. At that time, you can return to full activity, including the gym, without limitation. Do not drive a motor vehicle while taking prescribes narcotic pain medication. Wound Care: If you have a bandage in place, leave it on for 3 days. At that time you may remove the outer bandage. If there are strips of tape on the skin after removing the outer bandage, leave them in place. They will fall off by themselves. Do not remove them. If there is clear glue on the skin after removing the outer bandage, leave it in place. Do not pick at it or peel it off. You may shower after taking the outer bandage off, 3 days after your surgery. For male groin hernia patients: you may notice a black and blue discoloration of your testicles. This is normal and should resolve over the next week or two. If this persists, please call the office. Diet: You may continue your regular diet at home. If you have a history of high blood pressure, you should be on a low sodium diet. If you have a history of Diabetes Mellitus, you should be on a diabetic/sugar controlled diet. If you had your gallbladder removed, you should be on a low cholesterol/low fat diet. Medications/Pain Management: You may resume previous medications unless told otherwise. You may take the prescribed narcotic pain medication as needed. If the narcotic medication is not needed for pain control, you may take Tylenol. Avoid all other pain medications including Advil, Ibuprofen, Motrin, Aspirin, Naprosyn, Aleve, Celebrex. Vomiting/Nausea: This may occur if you eat too fast, don't chew, or eat too much. Go back to fluids. If the vomiting or nausea persists, call the office. Constipation/Diarrhea: You may experience a change in bowel habits. Many things affect this, including taking pain medication. If either persist, call the office. Follow up: Please follow up with your Dr.Jonathan Cevallos (The surgeon) within 2 weeks. Call the office at [phone] for an appointment 2 weeks after your surgical procedure. Referrals: Panda Cevallos MD [Staff Physician] - 2 Weeks Stephani Macedo MD [Primary Care Provider] - 1 Week Disposition: HOME - Home Medications Comprehensive Discharge Medication List: Ambulatory Orders Fenofibrate,Micronized [Fenofibrate] 43 mg PO DAILY 12/12/12 Aspirin [ASA -] 81 mg PO DAILY #10 12/17/12 Docusate Sodium [Colace -] 100 mg PO TID #90 capsule 07/15/17 Oxycodone HCl/Acetaminophen [Percocet 5-325 mg Tablet] 1 - 2 tab PO Q6H #28 tab MDD 4 07/15/17 This patient is new to me today: No Emergency Visit: Yes ED Registration Date: 07/15/17 Care time: The patient presented to the Emergency Department on the above date and was hospitalized for further evaluation of their emergent condition. Critical Care patient: No - Discharge Referral Referred to [facility] Med P.C.: No
--- NOTE | 2017-07-16 12:36 | PN ---
Progress Note (short form) - Note Progress Note: POD 1 Laparoscopic cholecystectomy, umbilical hernia repair Pain controlled On diet Vital Signs Period Temp Pulse Resp BP Sys/Fernandez Pulse Ox Last 24 Hr 97.5 F-98.6 F 83-103 10-20 120-156/76-93 97-100 Abd soft, dressings intact CBC, BMP 07/16/17 06:30 07/16/17 06:30 Doing well Can discharge home Follow up in office in 2 weeks [phone] Problem List - Problems (1) Cholecystitis with cholelithiasis Code(s): K80.10 - CALCULUS OF GALLBLADDER W CHRONIC CHOLECYST W/O OBSTRUCTION Qualifiers: Cholelithiasis location: gallbladder Cholecystitis acuity: unspecified acuity Biliary obstruction: without biliary obstruction Qualified Code(s ): K80.00 - Calculus of gallbladder with acute cholecystitis without obstruction (2) Acute cholecystitis due to biliary calculus Code(s): K80.00 - CALCULUS OF GALLBLADDER W ACUTE CHOLECYST W/O OBSTRUCTION
--- NOTE | 2017-07-16 13:28 | PN ---
Teaching Attending Note Name of Resident: Rinku Hood ATTENDING PHYSICIAN STATEMENT I saw and evaluated the patient. I reviewed the resident's note and discussed the case with the resident. I agree with the resident's findings and plan as documented. SUBJECTIVE:asymptomatic. pain is controlled. tolerating regular diet. denies CP , SOB< fever, chills, N/V/C/D. no flatus or BM yet OBJECTIVE: Last Vital Signs Temp Pulse Resp BP Pulse Ox 97.6 F 90 16 156/87 97 07/16/17 08:53 07/16/17 08:53 07/16/17 09:00 07/16/17 08:53 07/16/17 09:00 General NAD ABdomen soft +distention. bandages over surgical incision are clean/dry. mild tenderness surrounding incisions ASSESSMENT AND PLAN: 52yo M with PMH dyslipidemia and NAFLD presented with epigastric tenderness and found to have acute cholecysitits 1. Acute Cholecystitis-s/p laprascopic cholecystectomy on 07/15. no complications. tolerated surgery well. d/c abx as no longer necessary. counseled on risks assoc with pain medications, not to operate or drive [facility] machinery while taking and to monitor for constipation. to increase water and fiber intake if needed. to follow instructions by surgeon on discharge plan. 2. ELIANE-likley dehydration. resolved. baseline Cr 1.2. avoid nephrotoxic agents 3. NAFLD 4. d/c home with PMD and surgical follow up. answered all questions.
--- NOTE | 2017-07-19 14:13 | PATH ---
Surgical Pathology Report Patient Name: AIME CAIN Med. Rec. #: [id number] /Age/Gender: 1965 (Age: 52) / M Account: [id number] Location: [facility] MED/SURG Taken: 07/15/2017 Received: 07/16/2017 Reported: 07/19/2017 Physicians: Panda Cevallos M.D. Specimen(s) Received GALLBLADDER Clinical History Cholelithiasis Final Diagnosis GALLBLADDER, CHOLECYSTECTOMY: CHRONIC CHOLECYSTITIS, CHOLESTEROLOSIS, AND CHOLELITHIASIS. Electronically Signed Nayan Estrella M.D. Gross Description Received in formalin, labeled "gallbladder," is a 5.5 x 2.0 x 1.7 cm. gallbladder with a 0.2 cm. in length portion of cystic duct attached. The outer surface is khan pantoja with a focal defect and varies from smooth to shaggy. The lumen contains khan, tenacious bile as well as 2 yellow, irregular choleliths measuring 0.3 and 0.5 cm in greatest dimension. The mucosa is khan and focally eroded. The wall of the gallbladder averages 0.2 cm. in thickness. Flour Mixer sections are submitted in one cassette. 07/16/2017 [facility]07/16/2017
--- NOTE | 2017-07-20 20:26 | EKG ---
Test Reason : Blood Pressure : / mmHG Vent. Rate : 078 BPM Atrial Rate : 078 BPM P-R Int : 176 ms QRS Dur : 094 ms QT Int : 360 ms P-R-T Axes : 059 025 034 degrees QTc Int : 410 ms NORMAL SINUS RHYTHM POSSIBLE LEFT ATRIAL ENLARGEMENT BORDERLINE ECG WHEN COMPARED WITH ECG OF 10-JUL-2017 11:43, NO SIGNIFICANT CHANGE WAS FOUND BASELINE ARTIFACTS REPEAT EKG IF CLINICALLY INDICATED Confirmed by FELI TAO MD ([id number]) on 07/20/2017 8:26:19 PM Referred By: Confirmed By:FELI TAO MD
== END 2017-07-16 13:29 | disposition home or self-care (01) | DRG 418 ==
LOC: JER 19:56 → JERBED 07-15 04:50 → J8W 07-15 07:54
PROVIDERS: ADMIT Internal Medicine; ATTEND Internal Medicine
PROC: 0FT44ZZ Resection of Gallbladder, Percutaneous Endoscopic Approach (ICD-10-PCS; principal; 2017-07-15 20:15)
PROC: 0WQF0ZZ Repair Abdominal Wall, Open Approach (ICD-10-PCS; 2017-07-15 20:15)
DX: K80.00 Calculus of gallbladder with acute cholecystitis without obstruction (principal); N17.9 Acute kidney failure, unspecified; E78.5 Hyperlipidemia, unspecified; F17.210 Nicotine dependence, cigarettes, uncomplicated; E86.0 Dehydration; K42.9 Umbilical hernia without obstruction or gangrene
CPT/HCPCS: 36415; 74177-TC; 76000-TC; 80048; 80053; 82553; 83690; 84484; 85025; 85027; 85610; 85730; 86850; 86900; 86901; 87086; 88304-TC; 93005; 93010; 94760; 99285-25

== ENCOUNTER 2017-09-12 12:43 | Emergency (ER) | payer BC ==
--- NOTE | 2017-09-12 12:55 | PDOC ---
History of Present Illness - General Stated Complaint: COUGH Time Seen by Provider: 09/12/17 12:44 - History of Present Illness Initial Comments: 09/12/17 13:05 52yo male presents ambulatory to the ED c/o fevers, cough, sore throat, muscle aching since . Pt states he got sick on and has had a dry cough since. States also with rhinorrhea and sore throat from the cough. States he hasn't been able to sleep because of the cough/congestion. Has been taking tylenol and advil for the fever at home. Last dose of advil was 11am today ( 600mg). Pt has not had the flu shot. Denies sick contacts. Does work outside. Denies cp/sob. States ribs hurt when he coughs. Denies abd pain. NO n/v/d. NO dysuria. No rashes. States he alternates between fevers and chills at home. Pt does smoke tobacco (1.5 packs per day). PMhx: HLD ([place]) PSHx: demarcus, appy, knee (L) Allergies: PCN (vomiting) social: tobacco use daily Past History - Past Medical History Allergies/Adverse Reactions: Allergies Allergy/AdvReac Type Severity Reaction Status Date / Time Penicillins Allergy Verified 07/14/17 20:01 Home Medications: Ambulatory Orders Fenofibrate,Micronized [Fenofibrate] 43 mg PO DAILY 12/12/12 Aspirin [ASA -] 81 mg PO DAILY #10 12/17/12 Acetaminophen W/ Codeine #3 [Tylenol # 3 -] 1 tab PO Q6H PRN #10 tablet MDD 4 tabs 09/12/17 Albuterol Sulfate Inhaler - [Ventolin HFA Inhaler -] 1 - 2 inh PO Q4H #1 inhaler 09/12/17 Levofloxacin [Levaquin] 750 mg PO DAILY #5 tab 09/12/17 Prednisone [Deltasone -] 40 mg PO DAILY #4 tablet 09/12/17 Anemia: No Hypercholesterolemia: Yes - Surgical History Appendectomy: Yes - Suicide/Smoking/Psychosocial Hx Smoking History: Current every day smoker Have you smoked in the past 12 months: Yes Number of Cigarettes Smoked Daily: 30 Cigars Per Day: 0 'Breaking Loose' booklet given: 07/15/17 Hx Alcohol Use: No Drug/Substance Use Hx: No Substance Use Type: None Hx Substance Use Treatment: No Review of Systems - Review of Systems Able to Perform ROS?: Yes Is the patient limited Tamazight proficient: No Constitutional: Yes: Chills, Fever, Weakness. No: Night Sweats HEENTM: Yes: Nose Congestion, Throat Pain. No: Blurred Vision Respiratory: Yes: Cough. No: Shortness of Breath, Wheezing, Productive cough Cardiac (ROS): No: Chest Pain, Irregular Heart Rate, Lightheadedness, Palpitations ABD/GI: No: Abdominal Distended, Diarrhea, Nausea, Vomiting : No: Burning, Dysuria Musculoskeletal: No: Back Pain, Neck Pain Integumentary: No: Rash Neurological: No: Headache, Numbness, Paresthesia, Tingling, Weakness, Unsteady Gait, Ataxia All Other Systems: Reviewed and Negative *Physical Exam - Vital Signs 09/12/17 13:52 Selected Entries 09/12/17 12:43 Temperature 101.5 F H Pulse Rate 126 H Respiratory 18 Rate Respiratory Normal Depth Respiratory Non-Labored Effort Blood Pressure 108/69 O2 Sat by Pulse 95 Oximetry (%) Weight 85.729 kg - Physical Exam Comments: 09/12/17 13:52 gen: aaox3, flushed cheeks, bronchial cough HEENT: TM intact, no redness or bulging, nares boggie, post pharynx with erythema, no exudates neck: supple, no LAD heart: +s1s2 tachy lungs: soft end expiratory wheezing otherwise clear abd: soft, nt/nd +bs Ext: no c/c/e, radial and pedal pulses intact skin: hot to touch, no rashes neuro: cn ii-xii grossly intact, no focal deficits ED Treatment Course - LABORATORY CBC & Chemistry Diagram: 09/12/17 13:20 09/12/17 13:20 Medical Decision Making - Medical Decision Making 09/12/17 13:10 a/p: 52yo male with rhinorrhea, cough, congestion, sore throat, fevers, body aches -concern for bronchitis vs pna vs influenza vs flu like illness -fevers x 4 days labs, xray albuterol for wheezing today ivf hydration tylenol last motrin at 11a reassess 09/12/17 14:15 re-eval: discussed labs and imaging results. flu still pending pt states feeling better after the albuterol treatment no longer tachycardic *DC/Admit/Observation/Transfer Diagnosis at time of Disposition: Acute bronchitis - Discharge Dispostion Disposition: HOME Condition at time of disposition: Stable Admit: No - Prescriptions Prescriptions: Acetaminophen W/ Codeine #3 [Tylenol # 3 -] 1 tab PO Q6H PRN #10 tablet MDD 4 tabs PRN Reason: Cough Albuterol Sulfate Inhaler - [Ventolin HFA Inhaler -] 1 - 2 inh PO Q4H #1 inhaler Levofloxacin [Levaquin] 750 mg PO DAILY #5 tab Prednisone [Deltasone -] 40 mg PO DAILY #4 tablet - Referrals Referrals: Stephani Macedo MD [Primary Care Provider] - - Patient Instructions Printed Discharge Instructions: DI for Acute Bronchitis, DI for Reactive Airway Disease-Adult - Post Discharge Activity Forms/Work/School Notes: Back to Work
[2017-09-12] MEDS ORDERED: ACETAMINOPHEN 1000 MG/100 ML VIAL (NON FORMULARY) IVPB ONE (13:03)
[2017-09-12] MEDS ORDERED: SODIUM CHLORIDE 0.9% 1000 ML INFUS.BAG IV ONE (13:03)
[2017-09-12] MEDS ORDERED: ALBUTEROL SO4 2.5/IPRATROPIUM 0.5 INH SOL 3 ML VIAL.NEB. NEB ONE ×2 (13:03→13:07)
[2017-09-12] MEDS ORDERED: ACETAMINOPHEN INJECTION 100 ML IVPB ONE (13:07)
[2017-09-12 13:47] LABS: BASOPHIL 1.5 % (0-2.0); EOSINOPHIL 1.4 % (0-4.5); MCH 27.8 pg (25.7-33.7); MCHC 33.3 g/dl (32.0-35.9); MEAN CELL VOLUME 83.2 fl (80-96); MEAN PLT VOLUME 8.3 fl (7.5-11.1); NEUTROPHILS 77.7 % (42.8-82.8); PLATELET COUNT 157 K/MM3 (134-434); RDW 14.4 % (11.9-15.9); WHITE BLOOD COUNT 5.3 K/mm3 (4.0-10.8)
[2017-09-12 13:54] LABS: ALBUMIN 3.7 g/dl (3.5-5.0); ALK PHOS 39 U/L (32-92); ANION GAP 8 (8-16); BILIRUBIN,TOTAL 0.6 mg/dl (0.2-1.0); CALCIUM 8.3 mg/dl (8.4-10.2); CO2 25 mmol/L (22-28); CREATININE 1.4 mg/dl (0.6-1.3); GLUCOSE,RANDOM 124 mg/dl (74-106); MAGNESIUM 1.8 mg/dL (1.8-2.4); SGOT/AST 27 U/L (10-42); SGPT/ALT 20 U/L (10-40); TOT PROT 6.7 g/dl (6.4-8.3)
[2017-09-12 14:14] VITALS: BP 108/69; BMI 27.8
[2017-09-12 14:31] VITALS: PULSE 110; TEMP 99
[2017-09-12] MEDS ORDERED: LEVOFLOXACIN 250 MG TABLET (FP) PO ONE (14:36)
[2017-09-12] MEDS ORDERED: LEVOFLOXACIN 250 MG TABLET (FP) ONE (14:47)
[2017-09-12] MEDS ORDERED: LEVOFLOXACIN 500 MG TABLET (FP) ONE ×2 (14:47→14:48)
[2017-09-12] MEDS ORDERED: predniSONE 20 MG TABLET (UD) PO ONE (14:49)
[2017-09-12] MEDS ORDERED: predniSONE 20 MG TABLET (UD) ONE (14:59)
== END 2017-09-12 15:13 | disposition home or self-care (01) ==
LOC: SUPCPDRO 12:43 → FER 12:43
PROC: 3E033GC Introduction of Other Therapeutic Substance into Peripheral Vein, Percutaneous Approach (ICD-10-PCS; principal; 2017-09-12)
PROC: 3E0337Z Introduction of Electrolytic and Water Balance Substance into Peripheral Vein, Percutaneous Approach (ICD-10-PCS; 2017-09-12)
PROC: 3E0F7GC Introduction of Other Therapeutic Substance into Respiratory Tract, Via Natural or Artificial Opening (ICD-10-PCS; 2017-09-12)
DX: J20.9 Acute bronchitis, unspecified (principal); F17.210 Nicotine dependence, cigarettes, uncomplicated; E78.00 Pure hypercholesterolemia, unspecified; Z88.0 Allergy status to penicillin; Z79.82 Long term (current) use of aspirin
CPT/HCPCS: 36415; 71020-TC; 80053; 83735; 85025; 87804; 99283-25

== ENCOUNTER 2018-10-21 13:03 | Emergency (ER) | payer BC ==
--- NOTE | 2018-10-21 13:08 | PDOC ---
History of Present Illness - General Chief Complaint: Respiratory Stated Complaint: cough and congestion x 3 days Time Seen by Provider: 10/21/18 13:05 - History of Present Illness Initial Comments: 10/21/18 13:44 The patient is a 53 year old male with a history of HLD, COPD who presents for evaluation of cough and chest congestion. The patient reports a 3 day history of worsening non-productive cough with associated chest congestion and shortness of breath prompting the patient's presentation for further evaluation. They note that the patient was intubated 1 year ago for pneumonia with ARDS. He states that he has had minimal improvement in home nebulizers. He does note use home O2. He notes some chest pain with coughing but otherwise denies fevers, chills, nausea, vomiting, abdominal pain, or changes with urination or bowel movements. Past History - Past Medical History Allergies/Adverse Reactions: Allergies Allergy/AdvReac Type Severity Reaction Status Date / Time Penicillins Allergy Verified 10/21/18 13:05 Home Medications: Ambulatory Orders Fenofibrate,Micronized [Fenofibrate] 67 mg PO DAILY 12/12/12 Aspirin [ASA -] 81 mg PO DAILY #10 12/17/12 Albuterol Sulfate Inhaler - [Ventolin HFA Inhaler -] 1 - 2 inh PO QID PRN Azithromycin 250 mg PO DAILY #4 tablet 10/21/18 Famotidine [Pepcid] 20 mg PO BID PRN #20 tablet 10/21/18 Prednisone [Deltasone] 60 mg PO DAILY #12 tablet 10/21/18 Anemia: No COPD: Yes Hypercholesterolemia: Yes Psychiatric Problems: Yes (PTSD,) Other medical history: PNEUMONIA,INTUBATION. - Surgical History Appendectomy: Yes Cholecystectomy: Yes - Suicide/Smoking/Psychosocial Hx Smoking History: Former smoker Have you smoked in the past 12 months: Yes Number of Cigarettes Smoked Daily: 15 Cigars Per Day: 0 'Breaking Loose' booklet given: 09/12/17 Hx Alcohol Use: No Drug/Substance Use Hx: No Substance Use Type: None Hx Substance Use Treatment: No Review of Systems - Review of Systems Comments:: 10/21/18 13:51 Constitutional: No fevers, chills, fatigue, malaise HEENT: No Rhinorrhea, nasal congestion, visual changes Cardiovascular: Chest congestion. No syncope, palpitations, lightheadedness Respiratory: SOB, cough. No Hemoptysis, Gastrointestinal: No Abdominal pain, Nausea, Vomiting, Constipation, Diarrhea, Melena Genitourinary: No Dysuria, Frequency, Urgency, Hesitancy, Hematuria, Flank pain Musculoskeletal: No Myalgia, arthralgia Skin: No rashes, itching, bruising, pallor Neurologic: No Headache, Dizziness, Numbness, Weakness, or Tingling Psychiatric: No Hallucinations. No SI or HI *Physical Exam - Physical Exam Comments: 10/21/18 13:52 General Appearance: Nourished. No Apparent Distress HEENT: No Pharyngeal Erythema, Tonsillar Exudate, Tonsillar Erythema Neck: No Cervical Lymphadenopathy Respiratory/Chest: Expiratory wheezing with rhonchi noted on exam. No Crackles , Cardiovascular: Regular Rhythm, Regular Rate. No Murmur, Gallops, Rubs Gastrointestinal/Abdominal: Normal Bowel Sounds, Soft. No Guarding, Rebound, Tenderness Musculoskeletal: No CVA Tenderness Extremity: Normal Capillary Refill Integumentary: Normal Color, Dry, Warm Neurologic: Fully Oriented, Alert, Normal Mood/Affect, Normal Response, ED Treatment Course - LABORATORY CBC & Chemistry Diagram: 10/21/18 13:45 10/21/18 13:45 Medical Decision Making - Medical Decision Making 10/21/18 13:53 The patient is a 53 year old male with a history of HLD, COPD who presents for evaluation of cough and chest congestion. Differential includes but is not limited to: COPD, Pneumonia, bronchitis, Infectious, Metabolic Derangement. Given the patient's history and physical exam, we will obtain a cbc, cmp, troponin, chest plain film, ekg to evaluate further. We will treat with duonebs and oral prednisone and continue to monitor and reassess while here in the ED. 10/21/18 15:15 CBC, cmp, troponin are unremarkable. Chest plain film is unremarkable as read by our radiologist. The patient reports some improvement in his symptoms. We are comfortable discharging the patient home with primary care provider follow up on prednisone and azithromycin. We discussed the results, plan, and return precautions with the patient who voiced understanding and is agreeable with the plan. *DC/Admit/Observation/Transfer Diagnosis at time of Disposition: COPD exacerbation, Acute bronchitis - Discharge Dispostion Disposition: HOME Condition at time of disposition: Stable - Prescriptions Prescriptions: Azithromycin 250 mg PO DAILY #4 tablet Famotidine [Pepcid] 20 mg PO BID PRN #20 tablet PRN Reason: Acid Reflux Prednisone [Deltasone] 60 mg PO DAILY #12 tablet - Referrals Referrals: Kit Rogers MD [Staff Physician] - - Patient Instructions Printed Discharge Instructions: DI for Chronic Obstructive Pulmonary Disease, DI for Acute Bronchitis Additional Instructions: Take the azithromycin as prescribed. Take the prednisone as prescribed. It may take several days before your symptoms improve. - Post Discharge Activity
[2018-10-21 13:10] VITALS: BMI 28.9
[2018-10-21] MEDS ORDERED: ALBUTEROL SO4 2.5/IPRATROPIUM 0.5 INH SOL 3 ML VIAL.NEB. NEB ONE ×2 (13:30→13:39)
[2018-10-21 13:52] LABS: BASO % 0.8 % (0-2.0); HEMATOCRIT 42.3 % (35.4-49); LYMPH % 29.5 % (8-40); MCH 28.1 pg (25.7-33.7); MEAN CELL VOLUME 85.3 fl (80-96); MEAN PLT VOLUME 7.4 fl (7.5-11.1); MONO % 6.7 % (3.8-10.2); PLATELET COUNT 325 K/MM3 (134-434); RBC 4.96 M/mm3 (4.00-5.60); RDW 14.5 % (11.9-15.9); WHITE BLOOD COUNT 7.6 K/mm3 (4.0-10.8)
--- NOTE | 2018-10-21 13:52 | PDOC ---
Attending Attestation - Resident Resident Name: Bakari Clemons - ED Attending Attestation I have performed the following: I have examined & evaluated the patient, The case was reviewed & discussed with the resident, I agree w/resident's findings & plan, Exceptions are as noted - HPI HPI: 10/21/18 14:07 53 year old male c/ hx of COPD, trach s/p reversal, hx of intubation p/w cough x 3 days. 3 days ago, started to developed productive cough and some SOB. Reports some chest pain only with coughing. No fevers, chills. - Physicial Exam PE: 10/21/18 14:39 GENERAL: Awake, alert, and fully oriented, in no acute distress HEAD: No signs of trauma EYES:EOMI, sclera anicteric, conjunctiva clear ENT: Auricles normal inspection, hearing grossly normal, nares patent, NECK: Normal ROM, supple LUNGS: Breath sounds equal, feint expiratory wheezing bilaterally. Coughing throughout exam. HEART: Regular rate and rhythm, normal S1 and S2, no murmurs, rubs or gallops ABDOMEN: Soft, nontenders. No guarding, no rebound. No masses EXTREMITIES: Normal range of motion, no edema. No clubbing or cyanosis. No cords, erythema, or tenderness NEUROLOGICAL: Cranial nerves II through XII grossly intact. Normal speech, normal gait SKIN: Warm, Dry, normal turgor, no rashes or lesions noted. - Medical Decision Making 10/21/18 14:40 Vital Signs Temp Pulse Resp BP Pulse Ox 98.1 F 97 H 16 130/90 98 10/21/18 13:04 10/21/18 13:04 10/21/18 13:04 10/21/18 13:04 10/21/18 13:04 Imp: COPD exacerbation with bronchitis. Chest xray negative for pneumonia. ECG reassuring Duonebs, prednisone, and will likely initiate azithromycin. Once pt feels better and w/u is negative, pt can be d/c home. 10/21/18 14:48 CBC, BMP 10/21/18 13:45 10/21/18 13:45 CMP Sodium 135 mmol/L (136-145) L 10/21/18 13:45 Potassium 4.1 mmol/L (3.5-5.1) 10/21/18 13:45 Chloride 101 mmol/L (98-107) 10/21/18 13:45 Carbon Dioxide 28 mmol/L (22-28) 10/21/18 13:45 Anion Gap 6 MMOL/L (8-16) L 10/21/18 13:45 BUN 21 mg/dl (7-18) H 10/21/18 13:45 Creatinine 1.4 mg/dl (0.6-1.3) H 10/21/18 13:45 Creat Clearance w eGFR 52.81 (>60) 10/21/18 13:45 Random Glucose 109 mg/dl (74-106) H 10/21/18 13:45 Calcium 8.7 mg/dl (8.4-10.2) 10/21/18 13:45 Total Bilirubin 0.6 mg/dl (0.2-1.0) 10/21/18 13:45 AST 30 U/L (10-42) 10/21/18 13:45 ALT 40 U/L (10-40) D 10/21/18 13:45 Alkaline Phosphatase 53 U/L (32-92) 10/21/18 13:45 Creatine Kinase 389 IU/L (26-308) H 10/21/18 13:45 Troponin I < 0.03 ng/ml (0.00-0.06) 10/21/18 13:45 Total Protein 8.0 g/dl (6.4-8.3) 10/21/18 13:45 Albumin 4.4 g/dl (3.5-5.0) 10/21/18 13:45 Chest xray reviewed. No acute findings. Will give azithromycin. Pt breathing comfortably and feels better. I discussed the physical exam findings, ancillary test results and final diagnoses with the patient. I answered all of the patient's questions. The patient was satisfied with the care received and felt comfortable with the discharge plan and treatment plan. The patient will call their primary care physician within 24 hours to arrange follow-up and will return to the Emergency Department with any new, persistant or worsening symptoms. *DC/Admit/Observation/Transfer Diagnosis at time of Disposition: COPD exacerbation Acute bronchitis Qualifiers: Bronchitis organism: unspecified organism Qualified Code(s): J20.9 - Acute bronchitis, unspecified - Discharge Dispostion Disposition: HOME Condition at time of disposition: Stable Decision to Admit order: No - Prescriptions Prescriptions: Azithromycin 250 mg PO DAILY #4 tablet Famotidine [Pepcid] 20 mg PO BID PRN #20 tablet PRN Reason: Acid Reflux Prednisone [Deltasone] 60 mg PO DAILY #12 tablet - Referrals Referrals: Kit Rogers MD [Staff Physician] - - Patient Instructions Printed Discharge Instructions: DI for Acute Bronchitis, DI for Chronic Obstructive Pulmonary Disease Additional Instructions: Take the azithromycin as prescribed. Take the prednisone as prescribed. It may take several days before your symptoms improve. - Post Discharge Activity Heart Score/ECG Review #1 ECG reviewed & interpreted by me at: 13:00 10/21/18 13:52 NSR 93, no std/lolis, normal axis ,normal intervals, Q wave III, TWI III, QTC 440 msec
[2018-10-21] MEDS ORDERED: predniSONE 20 MG TABLET (UD) PO ONE (13:54)
[2018-10-21] MEDS ORDERED: predniSONE 20 MG TABLET (UD) ONE (13:59)
[2018-10-21 14:13] LABS: ALBUMIN 4.4 g/dl (3.5-5.0); ALK PHOS 53 U/L (32-92); ANION GAP 6 MMOL/L (8-16); BILIRUBIN,TOTAL 0.6 mg/dl (0.2-1.0); BLOOD UREA NITROGEN 21 mg/dl (7-18); CALCIUM 8.7 mg/dl (8.4-10.2); CHLORIDE 101 mmol/L (98-107); CO2 28 mmol/L (22-28); CREATININE 1.4 mg/dl (0.6-1.3); GLUCOSE,RANDOM 109 mg/dl (74-106); POTASSIUM 4.1 mmol/L (3.5-5.1); SGOT/AST 30 U/L (10-42); SGPT/ALT 40 U/L (10-40); SODIUM 135 mmol/L (136-145)
[2018-10-21] MEDS ORDERED: CYCLOBENZAPRINE HCL 10 MG TABLET (FP) PO ONE (14:26)
[2018-10-21] MEDS ORDERED: KETOROLAC TROMETHAMINE 30 MG/1 ML VIAL IVPUSH ONE (14:26)
[2018-10-21] MEDS ORDERED: AZITHROMYCIN 500 MG TABLET PO ONE (14:48)
[2018-10-21] MEDS ORDERED: AZITHROMYCIN 250 MG TABLET ONE (15:16)
[2018-10-21 15:31] VITALS: BP 131/94; PULSE 89
[2018-10-21 15:38] VITALS: TEMP 97.7
--- NOTE | 2018-10-22 13:28 | EKG ---
Test Reason : Blood Pressure : / mmHG Vent. Rate : 093 BPM Atrial Rate : 093 BPM P-R Int : 158 ms QRS Dur : 100 ms QT Int : 354 ms P-R-T Axes : 051 014 008 degrees QTc Int : 440 ms NORMAL SINUS RHYTHM POSSIBLE LEFT ATRIAL ENLARGEMENT BORDERLINE ECG WHEN COMPARED WITH ECG OF 16-SEP-2017 11:55, VENT. RATE HAS DECREASED BY 50 BPM QUESTIONABLE CHANGE IN QRS AXIS Confirmed by JACOB NAIK, [place] ([id number]) on 10/22/2018 1:28:02 PM Referred By: JAMIL Confirmed By:[place] JAMES MD
== END 2018-10-21 15:39 | disposition home or self-care (01) ==
LOC: FER 13:03
PROC: 3E0F7GC Introduction of Other Therapeutic Substance into Respiratory Tract, Via Natural or Artificial Opening (ICD-10-PCS; principal; 2018-10-21)
DX: J44.1 Chronic obstructive pulmonary disease with (acute) exacerbation (principal); J20.9 Acute bronchitis, unspecified; E78.5 Hyperlipidemia, unspecified; F43.10 Post-traumatic stress disorder, unspecified; Z88.0 Allergy status to penicillin; Z79.82 Long term (current) use of aspirin; Z87.891 Personal history of nicotine dependence
CPT/HCPCS: 36415; 71045-TC-FY; 80053; 82550; 82553; 84484; 85025; 93005; 99283-25

== ENCOUNTER 2019-01-01 10:41 | Emergency (ER) | payer OTHER, BC ==
[2019-01-01 10:59] VITALS: TEMP 98.3; BMI 30.1
[2019-01-01] MEDS ORDERED: IBUPROFEN 600 MG TABLET (FP) PO ONE ×2 (11:02→11:04)
[2019-01-01] MEDS ORDERED: ALBUTEROL SO4 2.5/IPRATROPIUM 0.5 INH SOL 3 ML VIAL.NEB. NEB ONE ×2 (11:02)
[2019-01-01] MEDS ORDERED: RACEPINEPHRINE IH SOL 2.25% 11.25 MG/0.5 ML VIAL NEB ONE (11:11)
--- NOTE | 2019-01-01 11:36 | PDOC ---
History of Present Illness - General Chief Complaint: Injury Stated Complaint: RIGHT RIB PAIN History Source: Patient Exam Limitations: No Limitations - History of Present Illness Initial Comments: 01/01/19 11:31 53-year-old male history of COPD here today complaining of right rib pain. 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 followng pt states he had severe right rib pain. worse wtih movement and coughing. has had productive cough , uses albuterol intermittently for COPD. no f/c no leg swelling. no other injuries. pain is mildly improved with motrin. Past History - Past Medical History Allergies/Adverse Reactions: Allergies Allergy/AdvReac Type Severity Reaction Status Date / Time Penicillins Allergy Verified 10/21/18 13:05 Home Medications: Ambulatory Orders Fenofibrate,Micronized [Fenofibrate] 67 mg PO DAILY 12/12/12 Aspirin [ASA -] 81 mg PO DAILY #10 12/17/12 Albuterol Sulfate Inhaler - [Ventolin HFA Inhaler -] 1 - 2 inh PO QID PRN Fluticasone/Umeclidin/Vilanter [Trelegy Ellipta 100-62.5-25] 1 each IH DAILY 08/12 Ibuprofen [Motrin -] 600 mg PO TID PRN #90 tablet MDD 3 01/01/19 Mv-Mins/Folic/Lycopene/Ginkgo [One Daily Men's 50+ Tablet] 1 each PO DAILY 01/01 Anemia: No COPD: Yes Hypercholesterolemia: Yes Psychiatric Problems: Yes (PTSD,) Other medical history: ARDS - Surgical History Appendectomy: Yes Cholecystectomy: Yes Lung Surgery: Yes (TRACHEOSTOMY) - Suicide/Smoking/Psychosocial Hx Smoking History: Former smoker Have you smoked in the past 12 months: No Number of Cigarettes Smoked Daily: 15 If you are a former smoker, when did you quit?: 2017 Cigars Per Day: 0 Information on smoking cessation initiated: No 'Breaking Loose' booklet given: 09/12/17 Hx Alcohol Use: No Drug/Substance Use Hx: No Substance Use Type: None Hx Substance Use Treatment: No Review of Systems - Review of Systems Constitutional: No: Chills, Diaphoresis, Fever, Unexplained wgt Loss Respiratory: Yes: Cough, Productive cough Cardiac (ROS): Yes: Chest Pain ABD/GI: No: Abdominal Distended, Nausea, Vomiting : No: Burning, Dysuria, Discharge Integumentary: No: Bruising All Other Systems: Reviewed and Negative *Physical Exam - Vital Signs Last Vital Signs Temp Pulse Resp BP Pulse Ox 98.3 F 108 H 20 139/100 96 01/01/19 10:42 01/01/19 10:42 01/01/19 10:42 01/01/19 10:42 01/01/19 10:42 - Physical Exam Comments: 01/01/19 11:34 awake alert lungs with exp wheezing bilaterally posterior lung palmer at bases. right lower lateral rib ttp. no step off. no crepitus. no noted eccymosis. heart rrr no mrg . abd soft nt nd. no eccymosis. no cva tenderness. ext wwp atraumatic. no edema. Moderate Sedation - Procedure Monitoring Vital Signs: Procedure Monitoring Vital Signs Temperature 98.3 F 01/01/19 10:42 Pulse Rate 108 H 01/01/19 10:42 Respiratory Rate 20 01/01/19 10:42 Blood Pressure 139/100 01/01/19 10:42 O2 Sat by Pulse Oximetry (%) 96 01/01/19 10:42 ED Treatment Course - RADIOLOGY Radiology Studies Ordered: Category Date Time Status RIBS RIGHT SIDE [RAD] Stat Radiology 01/01/19 11:01 Ordered - Medications Given in the ED: ED Medications Discontinued Medications Generic Name Dose Route Start Last Admin Trade Name Freq PRN Reason Stop Dose Admin Albuterol/Ipratropium 1 amp 01/01/19 11:02 01/01/19 11:15 Duoneb - NEB 01/01/19 11:03 1 amp ONCE ONE Administration Ibuprofen 600 mg 01/01/19 11:02 01/01/19 11:10 Motrin - PO 01/01/19 11:03 600 mg ONCE ONE Administration Medical Decision Making - Medical Decision Making 01/01/19 11:34 pt wtih trauma to right lateral chest wall one week ago, here today for persistant pain, coughing with copd. differential pna, ateletctasis. rib fx, ptx. plan cxr duoneb. motrin. if negative. will dc on nebs, and motrin for pain. *DC/Admit/Observation/Transfer Diagnosis at time of Disposition: Rib fracture - Discharge Dispostion Disposition: HOME Condition at time of disposition: Improved Decision to Admit order: No - Prescriptions Prescriptions: Ibuprofen [Motrin -] 600 mg PO TID PRN #90 tablet MDD 3 PRN Reason: Pain - Referrals Referrals: Kit Rogers MD [Primary Care Provider] - - Patient Instructions Printed Discharge Instructions: Chronic Obstructive Pulmonary Disease, Rib Fracture Additional Instructions: you should use your inhalers to help wtih cough, and difficulty breathing every 4 hours. you can take motrin 600 mg every 8 hrs as needed for pain. follow up with your primary doctor. you may continue to have pain for one week. return for fever, worsening shortness of breath or any concerns. there is a questionable fracture on your right 9th rib. this should heal on its own. it is very important to use an incentive spirometer 10 times every 2 hours while awake. to prevent pneumonia. - Post Discharge Activity
[2019-01-01 11:55] VITALS: BP 130/86; PULSE 100
== END 2019-01-01 11:55 | disposition home or self-care (01) ==
LOC: FER 10:41
CPT/HCPCS: 71101-TC-RT-FY; 99282-25

== ENCOUNTER 2021-10-29 12:23 | Inpatient (IN) | payer BC, OTHER ==
[2021-10-29] MEDS ORDERED: DEXAMETHASONE SOD PHOSPHATE 4 MG/1 ML VIAL IVPUSH ONE (15:54)
[2021-10-29] MEDS ORDERED: AZITHROMYCIN IVPB 500 MG in DEXTROSE 5%-WATER - 250 ML IVPB ONE (15:54)
[2021-10-29] MEDS ORDERED: DEXAMETHASONE SOD PHOSPHATE 10 MG/1 ML VIAL ONE (15:59)
[2021-10-29] MEDS ORDERED: AZITHROMYCIN IVPB 500 MG/250 ML BAG IVPB ONE (15:59)
[2021-10-29 16:34] LABS: VENOUS BASE EXCESS -1.1 mmol/L (-2-2); VENOUS O2 SATURATION 89.1 % (70-80); VENOUS PCO2 43.4 mmHg (38-52); VENOUS PH 7.368 (7.310-7.410)
[2021-10-29 16:43] LABS: BASO % 0.1 % (0-2.0); HEMATOCRIT 38.6 % (35.4-49); LYMPH % 10.9 % (8-40); MCH 27.1 pg (25.7-33.7); MCHC 33.7 g/dl (32.0-35.9); MEAN CELL VOLUME 80.6 fl (80-96); MONO % 5.8 % (3.8-10.2); NEUT % 83.2 % (42.8-82.8); PLATELET COUNT 176 10^3/uL (134-434); RBC 4.79 M/mm3 (4.00-5.60); RDW 15.9 % (11.9-15.9); WHITE BLOOD COUNT 4.8 K/mm3 (4.0-10.0)
[2021-10-29 16:52] LABS: INR 1.04 (0.83-1.09); PROTHROMBIN TIME (PATIENT) 12.2 SEC (9.7-13.0)
[2021-10-29 16:54] LABS: ACTIVATED PTT 26.5 SECONDS (25.2-36.5)
[2021-10-29 16:55] LABS: CHLORIDE 102 mmol/L (98-107); SODIUM 138 mmol/L (136-145)
[2021-10-29 16:56] LABS: CALCIUM 8.6 mg/dL (8.5-10.1)
[2021-10-29 16:57] LABS: ALBUMIN 3.5 g/dl (3.4-5.0); ANION GAP 10 MMOL/L (8-16); BLOOD UREA NITROGEN 19.8 mg/dL (7-18); CO2 26 mmol/L (21-32); GLUCOSE,RANDOM 164 mg/dL (74-106)
[2021-10-29 17:00] LABS: CREATININE 1.2 mg/dL (0.55-1.3); SGOT/AST 73 U/L (15-37); SGPT/ALT 92 U/L (13-61)
[2021-10-29 17:02] LABS: BILIRUBIN,TOTAL 0.6 mg/dL (0.2-1); TOT PROT 7.4 g/dl (6.4-8.2)
[2021-10-29 17:03] LABS: ALK PHOS 72 U/L (45-117)
[2021-10-30] MEDS: ASCORBIC ACID 500 MG TABLET (FP) PO SCH ×3 (01:17→21:05)
[2021-10-30 05:11] VITALS: BMI 31.0
[2021-10-30] MEDS ORDERED: DEXAMETHASONE SOD PHOSPHATE 10 MG/1 ML VIAL IVPUSH SCH (10:00)
[2021-10-30 10:44] LABS: BASO % 0.2 % (0-2.0); HEMATOCRIT 37.9 % (35.4-49); HEMOGLOBIN 12.5 GM/dL (11.7-16.9); MCH 26.5 pg (25.7-33.7); MEAN CELL VOLUME 80.4 fl (80-96); MEAN PLT VOLUME 8.1 fl (7.5-11.1); NEUT % 80.8 % (42.8-82.8); PLATELET COUNT 240 10^3/uL (134-434); RBC 4.72 M/mm3 (4.00-5.60); RDW 15.9 % (11.9-15.9); WHITE BLOOD COUNT 6.9 K/mm3 (4.0-10.0)
[2021-10-30] MEDS ORDERED: PT OWN MED DRAWER 7, Y5N ONE (11:07)
[2021-10-30 11:16] LABS: ALBUMIN 3.3 g/dl (3.4-5.0); BLOOD UREA NITROGEN 24.2 mg/dL (7-18); CALCIUM 8.5 mg/dL (8.5-10.1); MAGNESIUM 2.4 mg/dL (1.8-2.4)
[2021-10-30 11:19] LABS: CREATININE 1.1 mg/dL (0.55-1.3)
[2021-10-30 11:20] LABS: BILIRUBIN,TOTAL 0.6 mg/dL (0.2-1); TOT PROT 7.1 g/dl (6.4-8.2)
[2021-10-30] MEDS: CHOLECALCIFEROL (VIT D3) 1,000 UNIT (25 MCG) TABLET PO SCH (12:26)
[2021-10-30] MEDS: ASPIRIN 81 MG CHEWABLE TABLETS PO SCH (12:26)
[2021-10-30] MEDS: ENOXAPARIN NA (PORCINE) 40 MG/0.4 ML DISP.SYRIN SQ SCH (12:26)
[2021-10-30] MEDS: ZINC SULFATE 220 MG CAPSULE (FP) PO SCH (12:26)
[2021-10-30] MEDS: AZITHROMYCIN IVPB 500 MG/250 ML BAG IVPB SCH (12:27)
[2021-10-30] MEDS: FENOFIBRIC ACID 45 MG CAP PO SCH (12:52)
[2021-10-30] MEDS: FLUoxetine HCL 10 MG CAPSULE PO SCH (12:52)
[2021-10-30] MEDS ORDERED: DEXAMETHASONE SOD PHOSPHATE 10 MG/1 ML VIAL IVPUSH ONE (15:00)
[2021-10-30] MEDS ORDERED: AZTREONAM 1 GM VIAL (RESTRICTED TO ID) ONE (15:06)
[2021-10-30] MEDS ORDERED: DEXTROSE 5%-WATER - 50 ML IVPB ONE (15:06)
[2021-10-30] MEDS: AZTREONAM 1 GM in DEXTROSE 5%-WATER - 50 ML IVPB SCH ×2 (15:10→18:05)
[2021-10-30] MEDS: guaiFENesin 200 MG/10 ML 10 ML UNIT-DOSE CUPS PO PRN ×2 (15:20→21:05)
[2021-10-31] MEDS ORDERED: AZTREONAM 1 GM VIAL (RESTRICTED TO ID) ONE ×3 (01:16→18:10)
[2021-10-31] MEDS ORDERED: DEXTROSE 5%-WATER - 50 ML IVPB ONE ×3 (01:16→18:10)
[2021-10-31] MEDS: AZTREONAM 1 GM in DEXTROSE 5%-WATER - 50 ML IVPB SCH ×3 (01:27→18:13)
[2021-10-31] MEDS: guaiFENesin 200 MG/10 ML 10 ML UNIT-DOSE CUPS PO PRN ×2 (02:38→17:20)
[2021-10-31] MEDS: ALBUTEROL SO4 HFA INHALER IH PRN (06:38)
[2021-10-31] MEDS ORDERED: VANCOMYCIN PREMIX 1.5 GM 1,500 MG/300 ML BAG IVPB ONE (09:00)
[2021-10-31 09:31] LABS: HEMATOCRIT 36.6 % (35.4-49); MCH 26.5 pg (25.7-33.7); MCHC 32.7 g/dl (32.0-35.9); MEAN CELL VOLUME 81.1 fl (80-96); MEAN PLT VOLUME 7.6 fl (7.5-11.1); PLATELET COUNT 246 10^3/uL (134-434); RBC 4.51 M/mm3 (4.00-5.60); RDW 15.8 % (11.9-15.9); WHITE BLOOD COUNT 6.2 K/mm3 (4.0-10.0)
[2021-10-31 10:00] LABS: CALCIUM 8.4 mg/dL (8.5-10.1)
[2021-10-31 10:01] LABS: ALBUMIN 3.2 g/dl (3.4-5.0); CREATININE 1.1 mg/dL (0.55-1.3)
[2021-10-31 10:02] LABS: BILIRUBIN,TOTAL 0.6 mg/dL (0.2-1)
[2021-10-31] MEDS: CHOLECALCIFEROL (VIT D3) 1,000 UNIT (25 MCG) TABLET PO SCH (11:10)
[2021-10-31] MEDS: ASPIRIN 81 MG CHEWABLE TABLETS PO SCH (11:10)
[2021-10-31] MEDS: ENOXAPARIN NA (PORCINE) 40 MG/0.4 ML DISP.SYRIN SQ SCH (11:10)
[2021-10-31] MEDS: ASCORBIC ACID 500 MG TABLET (FP) PO SCH ×2 (11:11→22:06)
[2021-10-31] MEDS: ZINC SULFATE 220 MG CAPSULE (FP) PO SCH (11:11)
[2021-10-31] MEDS: DEXAMETHASONE SOD PHOSPHATE 10 MG/1 ML VIAL IVPB SCH (11:12)
[2021-10-31] MEDS ORDERED: PT OWN MED DRAWER 7, Y5N ONE (11:37)
[2021-10-31] MEDS: AZITHROMYCIN IVPB 500 MG/250 ML BAG IVPB SCH (11:57)
[2021-10-31] MEDS: FENOFIBRIC ACID 45 MG CAP PO SCH (12:15)
[2021-10-31] MEDS: FLUoxetine HCL 10 MG CAPSULE PO SCH (12:16)
[2021-11-01] MEDS ORDERED: VANCOMYCIN PREMIX 1.5 GM 1,500 MG/300 ML BAG IVPB ONE (01:00)
[2021-11-01] MEDS ORDERED: DEXTROSE 5%-WATER - 50 ML IVPB ONE ×3 (01:14→16:51)
[2021-11-01] MEDS ORDERED: AZTREONAM 1 GM VIAL (RESTRICTED TO ID) ONE ×3 (01:14→16:51)
[2021-11-01] MEDS: AZTREONAM 1 GM in DEXTROSE 5%-WATER - 50 ML IVPB SCH ×3 (03:03→17:14)
[2021-11-01 08:35] LABS: HEMATOCRIT 34.1 % (35.4-49); HEMOGLOBIN 11.5 GM/dL (11.7-16.9); MCH 27.3 pg (25.7-33.7); MCHC 33.8 g/dl (32.0-35.9); MEAN CELL VOLUME 80.8 fl (80-96); MEAN PLT VOLUME 7.4 fl (7.5-11.1); PLATELET COUNT 247 10^3/uL (134-434); RBC 4.22 M/mm3 (4.00-5.60); RDW 15.9 % (11.9-15.9); WHITE BLOOD COUNT 6.4 K/mm3 (4.0-10.0)
[2021-11-01 09:03] LABS: CALCIUM 8.2 mg/dL (8.5-10.1)
[2021-11-01 09:04] LABS: BLOOD UREA NITROGEN 27.9 mg/dL (7-18)
[2021-11-01 09:06] LABS: BILIRUBIN,TOTAL 0.5 mg/dL (0.2-1); TOT PROT 6.7 g/dl (6.4-8.2)
[2021-11-01 09:07] LABS: CREATININE 1.1 mg/dL (0.55-1.3)
[2021-11-01] MEDS: CLOPIDOGREL BISULFATE 75 MG TABLET (FP) PO SCH (11:18)
[2021-11-01] MEDS: CHOLECALCIFEROL (VIT D3) 1,000 UNIT (25 MCG) TABLET PO SCH (11:18)
[2021-11-01] MEDS: ZINC SULFATE 220 MG CAPSULE (FP) PO SCH (11:19)
[2021-11-01] MEDS: AZITHROMYCIN IVPB 500 MG/250 ML BAG IVPB SCH (11:19)
[2021-11-01] MEDS: DEXAMETHASONE SOD PHOSPHATE 10 MG/1 ML VIAL IVPB SCH (11:19)
[2021-11-01] MEDS: ASPIRIN 81 MG CHEWABLE TABLETS PO SCH (11:20)
[2021-11-01] MEDS: ENOXAPARIN NA (PORCINE) 40 MG/0.4 ML DISP.SYRIN SQ SCH (11:20)
[2021-11-01] MEDS: FENOFIBRIC ACID 45 MG CAP PO SCH (11:21)
[2021-11-01] MEDS: FLUoxetine HCL 10 MG CAPSULE PO SCH (11:22)
[2021-11-01] MEDS: ASCORBIC ACID 500 MG TABLET (FP) PO SCH ×2 (11:27→21:41)
[2021-11-01] MEDS: guaiFENesin 200 MG/10 ML 10 ML UNIT-DOSE CUPS PO PRN ×2 (12:50→18:05)
[2021-11-01] MEDS: ALBUTEROL SO4 2.5/IPRATROPIUM 0.5 INH SOL 3 ML VIAL.NEB. NEB PRN (13:36)
[2021-11-01] MEDS: ALBUTEROL SO4 HFA INHALER IH PRN ×2 (17:21→21:41)
[2021-11-01] MEDS: VANCOMYCIN HCL 1,500 MG in DEXTROSE 5%-WATER - 250 ML IVPB SCH (22:29)
[2021-11-02] MEDS ORDERED: AZTREONAM 1 GM VIAL (RESTRICTED TO ID) ONE ×3 (01:36→16:35)
[2021-11-02] MEDS ORDERED: DEXTROSE 5%-WATER - 50 ML IVPB ONE ×3 (01:37→16:35)
[2021-11-02] MEDS: AZTREONAM 1 GM in DEXTROSE 5%-WATER - 50 ML IVPB SCH ×3 (01:51→17:06)
[2021-11-02] MEDS: guaiFENesin 200 MG/10 ML 10 ML UNIT-DOSE CUPS PO PRN ×4 (03:47→22:53)
[2021-11-02] MEDS: ALBUTEROL SO4 2.5/IPRATROPIUM 0.5 INH SOL 3 ML VIAL.NEB. NEB PRN ×2 (03:49→08:17)
[2021-11-02 09:02] LABS: BASO % 0.3 % (0-2.0); EOS % 1.1 % (0-4.5); HEMATOCRIT 34.6 % (35.4-49); HEMOGLOBIN 11.3 GM/dL (11.7-16.9); LYMPH % 12.9 % (8-40); MCH 26.6 pg (25.7-33.7); MCHC 32.6 g/dl (32.0-35.9); MEAN CELL VOLUME 81.4 fl (80-96); MEAN PLT VOLUME 7.3 fl (7.5-11.1); MONO % 10.3 % (3.8-10.2); NEUT % 75.4 % (42.8-82.8); PLATELET COUNT 272 10^3/uL (134-434); RBC 4.25 M/mm3 (4.00-5.60); RDW 15.9 % (11.9-15.9); WHITE BLOOD COUNT 7.1 K/mm3 (4.0-10.0)
[2021-11-02 09:44] LABS: BLOOD UREA NITROGEN 18.8 mg/dL (7-18); CALCIUM 8.1 mg/dL (8.5-10.1)
[2021-11-02 09:47] LABS: CREATININE 0.9 mg/dL (0.55-1.3)
[2021-11-02] MEDS: DEXAMETHASONE SOD PHOSPHATE 10 MG/1 ML VIAL IVPB SCH (10:14)
[2021-11-02] MEDS: ENOXAPARIN NA (PORCINE) 40 MG/0.4 ML DISP.SYRIN SQ SCH (10:16)
[2021-11-02] MEDS: CLOPIDOGREL BISULFATE 75 MG TABLET (FP) PO SCH (10:17)
[2021-11-02] MEDS: ZINC SULFATE 220 MG CAPSULE (FP) PO SCH (10:18)
[2021-11-02] MEDS: CHOLECALCIFEROL (VIT D3) 1,000 UNIT (25 MCG) TABLET PO SCH (10:18)
[2021-11-02] MEDS: FENOFIBRIC ACID 45 MG CAP PO SCH (10:18)
[2021-11-02] MEDS: ASPIRIN 81 MG CHEWABLE TABLETS PO SCH (10:18)
[2021-11-02] MEDS: FLUoxetine HCL 10 MG CAPSULE PO SCH (10:18)
[2021-11-02] MEDS: ASCORBIC ACID 500 MG TABLET (FP) PO SCH ×2 (10:19→21:07)
[2021-11-02] MEDS: AZITHROMYCIN IVPB 500 MG/250 ML BAG IVPB SCH (10:20)
[2021-11-02] MEDS: ALBUTEROL SO4 HFA INHALER IH PRN ×2 (10:21→21:07)
[2021-11-02] MEDS: ACETAMINOPHEN 325 MG TABLET (FP) PO PRN ×2 (12:12→17:02)
[2021-11-03] MEDS ORDERED: DEXTROSE 5%-WATER - 50 ML IVPB ONE ×3 (01:03→17:02)
[2021-11-03] MEDS ORDERED: AZTREONAM 1 GM VIAL (RESTRICTED TO ID) ONE ×3 (01:03→17:01)
[2021-11-03] MEDS: AZTREONAM 1 GM in DEXTROSE 5%-WATER - 50 ML IVPB SCH ×3 (01:08→17:12)
[2021-11-03 09:23] LABS: HEMOGLOBIN 11.5 GM/dL (11.7-16.9); MCH 26.8 pg (25.7-33.7); MCHC 32.8 g/dl (32.0-35.9); MEAN CELL VOLUME 81.6 fl (80-96); MEAN PLT VOLUME 7.3 fl (7.5-11.1); PLATELET COUNT 320 10^3/uL (134-434); RBC 4.29 M/mm3 (4.00-5.60)
[2021-11-03 09:44] LABS: BLOOD UREA NITROGEN 19.6 mg/dL (7-18); CALCIUM 8.5 mg/dL (8.5-10.1); CREATININE 0.8 mg/dL (0.55-1.3)
[2021-11-03] MEDS: FENOFIBRIC ACID 45 MG CAP PO SCH (10:36)
[2021-11-03] MEDS: ASPIRIN 81 MG CHEWABLE TABLETS PO SCH (10:36)
[2021-11-03] MEDS: ZINC SULFATE 220 MG CAPSULE (FP) PO SCH (10:36)
[2021-11-03] MEDS: CLOPIDOGREL BISULFATE 75 MG TABLET (FP) PO SCH (10:37)
[2021-11-03] MEDS: FLUoxetine HCL 10 MG CAPSULE PO SCH (10:37)
[2021-11-03] MEDS: CHOLECALCIFEROL (VIT D3) 1,000 UNIT (25 MCG) TABLET PO SCH (10:38)
[2021-11-03] MEDS: ASCORBIC ACID 500 MG TABLET (FP) PO SCH ×2 (10:38→21:44)
[2021-11-03] MEDS: DEXAMETHASONE SOD PHOSPHATE 10 MG/1 ML VIAL IVPB SCH (10:39)
[2021-11-03] MEDS: BUDESONIDE/FORMETEROL FUMARATE 160/4.5 mcg INHALER IH SCH ×3 (10:41→21:44)
[2021-11-03] MEDS: ENOXAPARIN NA (PORCINE) 40 MG/0.4 ML DISP.SYRIN SQ SCH (10:42)
[2021-11-03] MEDS: AZITHROMYCIN IVPB 500 MG/250 ML BAG IVPB SCH (11:22)
[2021-11-03] MEDS ORDERED: PT OWN MED DRAWER 7, Y5N ONE ×2 (11:36→12:53)
[2021-11-03] MEDS: ALBUTEROL SO4 HFA INHALER IH SCH ×3 (12:00→21:00)
[2021-11-03] MEDS: guaiFENesin 200 MG/10 ML 10 ML UNIT-DOSE CUPS PO PRN (18:03)
[2021-11-04] MEDS: AZTREONAM 1 GM in DEXTROSE 5%-WATER - 50 ML IVPB SCH ×2 (01:30→11:08)
[2021-11-04] MEDS: guaiFENesin 200 MG/10 ML 10 ML UNIT-DOSE CUPS PO PRN ×3 (01:30→21:29)
[2021-11-04] MEDS ORDERED: DEXTROSE 5%-WATER - 50 ML IVPB ONE ×2 (02:17→09:01)
[2021-11-04] MEDS ORDERED: AZTREONAM 1 GM VIAL (RESTRICTED TO ID) ONE ×2 (02:17→09:01)
[2021-11-04 08:23] LABS: HEMATOCRIT 34.6 % (35.4-49); HEMOGLOBIN 11.8 GM/dL (11.7-16.9); MCH 27.2 pg (25.7-33.7); MEAN CELL VOLUME 80.1 fl (80-96); MEAN PLT VOLUME 7.4 fl (7.5-11.1); PLATELET COUNT 370 10^3/uL (134-434); RBC 4.32 M/mm3 (4.00-5.60); RDW 15.7 % (11.9-15.9); WHITE BLOOD COUNT 8.1 K/mm3 (4.0-10.0)
[2021-11-04 08:46] LABS: ALBUMIN 2.9 g/dl (3.4-5.0)
[2021-11-04 08:47] LABS: CALCIUM 8.6 mg/dL (8.5-10.1)
[2021-11-04 08:48] LABS: BLOOD UREA NITROGEN 19.9 mg/dL (7-18); MAGNESIUM 2.5 mg/dL (1.8-2.4)
[2021-11-04 08:50] LABS: CREATININE 0.8 mg/dL (0.55-1.3); TOT PROT 6.9 g/dl (6.4-8.2)
[2021-11-04 08:51] LABS: BILIRUBIN,TOTAL 0.4 mg/dL (0.2-1); PHOSPHOROUS 3.5 mg/dL (2.5-4.9)
[2021-11-04] MEDS: ALBUTEROL SO4 HFA INHALER IH SCH ×4 (09:00→21:28)
[2021-11-04] MEDS: ENOXAPARIN NA (PORCINE) 40 MG/0.4 ML DISP.SYRIN SQ SCH (11:08)
[2021-11-04] MEDS: CLOPIDOGREL BISULFATE 75 MG TABLET (FP) PO SCH (11:09)
[2021-11-04] MEDS: FENOFIBRIC ACID 45 MG CAP PO SCH (11:09)
[2021-11-04] MEDS: ASPIRIN 81 MG CHEWABLE TABLETS PO SCH (11:09)
[2021-11-04] MEDS: ZINC SULFATE 220 MG CAPSULE (FP) PO SCH (11:09)
[2021-11-04] MEDS: ASCORBIC ACID 500 MG TABLET (FP) PO SCH ×2 (11:09→21:28)
[2021-11-04] MEDS: DEXAMETHASONE SOD PHOSPHATE 10 MG/1 ML VIAL IVPB SCH (11:09)
[2021-11-04] MEDS: CHOLECALCIFEROL (VIT D3) 1,000 UNIT (25 MCG) TABLET PO SCH (11:09)
[2021-11-04] MEDS: FLUoxetine HCL 10 MG CAPSULE PO SCH (11:11)
[2021-11-04] MEDS: BUDESONIDE/FORMETEROL FUMARATE 160/4.5 mcg INHALER IH SCH ×2 (11:12→21:28)
[2021-11-04] MEDS: AZITHROMYCIN IVPB 500 MG/250 ML BAG IVPB SCH (11:19)
[2021-11-04] MEDS: NEBIVOLOL 5 MG TABLET (FP) PO SCH (11:48)
[2021-11-05] MEDS: ALBUTEROL SO4 HFA INHALER IH SCH ×4 (09:25→21:25)
[2021-11-05] MEDS: ASCORBIC ACID 500 MG TABLET (FP) PO SCH ×2 (09:26→21:25)
[2021-11-05] MEDS: CHOLECALCIFEROL (VIT D3) 1,000 UNIT (25 MCG) TABLET PO SCH (09:26)
[2021-11-05] MEDS: ZINC SULFATE 220 MG CAPSULE (FP) PO SCH (09:26)
[2021-11-05] MEDS: CLOPIDOGREL BISULFATE 75 MG TABLET (FP) PO SCH (09:26)
[2021-11-05] MEDS: ASPIRIN 81 MG CHEWABLE TABLETS PO SCH (09:26)
[2021-11-05] MEDS: FENOFIBRIC ACID 45 MG CAP PO SCH (09:26)
[2021-11-05] MEDS: NEBIVOLOL 5 MG TABLET (FP) PO SCH (09:26)
[2021-11-05] MEDS: amLODIPine BESYLATE 5 MG TABLET (FP) PO SCH (09:26)
[2021-11-05] MEDS: guaiFENesin 200 MG/10 ML 10 ML UNIT-DOSE CUPS PO PRN ×2 (09:26→21:25)
[2021-11-05] MEDS: DEXAMETHASONE SOD PHOSPHATE 10 MG/1 ML VIAL IVPB SCH (09:27)
[2021-11-05] MEDS: FLUoxetine HCL 10 MG CAPSULE PO SCH (09:27)
[2021-11-05] MEDS: ENOXAPARIN NA (PORCINE) 40 MG/0.4 ML DISP.SYRIN SQ SCH (09:27)
[2021-11-05] MEDS: BUDESONIDE/FORMETEROL FUMARATE 160/4.5 mcg INHALER IH SCH ×2 (09:28→21:25)
[2021-11-05 09:47] LABS: HEMATOCRIT 39.2 % (35.4-49); HEMOGLOBIN 12.5 GM/dL (11.7-16.9); MCH 26.1 pg (25.7-33.7); MCHC 31.8 g/dl (32.0-35.9); MEAN CELL VOLUME 81.9 fl (80-96); MEAN PLT VOLUME 7.5 fl (7.5-11.1); PLATELET COUNT 469 10^3/uL (134-434); RBC 4.79 M/mm3 (4.00-5.60); RDW 15.8 % (11.9-15.9); WHITE BLOOD COUNT 8.4 K/mm3 (4.0-10.0)
[2021-11-05 10:05] LABS: ALBUMIN 3.1 g/dl (3.4-5.0)
[2021-11-05 10:06] LABS: MAGNESIUM 2.3 mg/dL (1.8-2.4)
[2021-11-05 10:08] LABS: CREATININE 0.9 mg/dL (0.55-1.3); PHOSPHOROUS 3.3 mg/dL (2.5-4.9)
[2021-11-05 10:09] LABS: BILIRUBIN,TOTAL 0.7 mg/dL (0.2-1); TOT PROT 7.3 g/dl (6.4-8.2)
[2021-11-06 09:05] LABS: HEMATOCRIT 37.9 % (35.4-49); HEMOGLOBIN 12.1 GM/dL (11.7-16.9); MCH 26.3 pg (25.7-33.7); MEAN CELL VOLUME 82.2 fl (80-96); MEAN PLT VOLUME 7.4 fl (7.5-11.1); PLATELET COUNT 414 10^3/uL (134-434); RBC 4.61 M/mm3 (4.00-5.60); RDW 15.7 % (11.9-15.9); WHITE BLOOD COUNT 10.2 K/mm3 (4.0-10.0)
[2021-11-06 09:48] LABS: CALCIUM 9.3 mg/dL (8.5-10.1)
[2021-11-06] MEDS: CHOLECALCIFEROL (VIT D3) 1,000 UNIT (25 MCG) TABLET PO SCH (09:48)
[2021-11-06] MEDS: ASPIRIN 81 MG CHEWABLE TABLETS PO SCH (09:48)
[2021-11-06] MEDS: amLODIPine BESYLATE 5 MG TABLET (FP) PO SCH (09:48)
[2021-11-06] MEDS: ZINC SULFATE 220 MG CAPSULE (FP) PO SCH (09:48)
[2021-11-06] MEDS: ASCORBIC ACID 500 MG TABLET (FP) PO SCH (09:48)
[2021-11-06] MEDS: CLOPIDOGREL BISULFATE 75 MG TABLET (FP) PO SCH (09:48)
[2021-11-06] MEDS: BUDESONIDE/FORMETEROL FUMARATE 160/4.5 mcg INHALER IH SCH (09:50)
[2021-11-06 09:51] LABS: BLOOD UREA NITROGEN 23.6 mg/dL (7-18)
[2021-11-06] MEDS: FENOFIBRIC ACID 45 MG CAP PO SCH (09:51)
[2021-11-06] MEDS: NEBIVOLOL 5 MG TABLET (FP) PO SCH (09:51)
[2021-11-06] MEDS: ENOXAPARIN NA (PORCINE) 40 MG/0.4 ML DISP.SYRIN SQ SCH (09:51)
[2021-11-06 09:52] LABS: BILIRUBIN,TOTAL 0.5 mg/dL (0.2-1); MAGNESIUM 2.4 mg/dL (1.8-2.4)
[2021-11-06] MEDS: ALBUTEROL SO4 HFA INHALER IH SCH ×2 (09:52→13:08)
[2021-11-06 09:54] LABS: CREATININE 0.9 mg/dL (0.55-1.3); PHOSPHOROUS 3.8 mg/dL (2.5-4.9)
[2021-11-06] MEDS ORDERED: DEXAMETHASONE SOD PHOSPHATE 4 MG/1 ML VIAL IVPB SCH (10:00)
[2021-11-06] MEDS ORDERED: DEXAMETHASONE 4 MG TABLET (FP) PO SCH (10:00)
[2021-11-06] MEDS: guaiFENesin 200 MG/10 ML 10 ML UNIT-DOSE CUPS PO PRN (10:20)
[2021-11-06] MEDS: FLUoxetine HCL 10 MG CAPSULE PO SCH (10:21)
[2021-11-06 15:11] VITALS: BP 120/60; PULSE 67; TEMP 97.6
== END 2021-11-06 18:24 | disposition home or self-care (01) | DRG 177 ==
LOC: JER 12:23 → JERBED 16:42 → J5S 10-30 04:36 → J8W 10-31 10:00
PROVIDERS: ADMIT Internal Medicine; ATTEND Internal Medicine
PROC: 3E0333Z Introduction of Anti-inflammatory into Peripheral Vein, Percutaneous Approach (ICD-10-PCS; principal; 2021-10-31)
DX: U07.1 COVID-19 (principal); J12.82 Pneumonia due to coronavirus disease 2019; J96.01 Acute respiratory failure with hypoxia; R78.81 Bacteremia; E78.5 Hyperlipidemia, unspecified; J44.9 Chronic obstructive pulmonary disease, unspecified; I10 Essential (primary) hypertension; F43.10 Post-traumatic stress disorder, unspecified; Z88.0 Allergy status to penicillin; K76.0 Fatty (change of) liver, not elsewhere classified; M54.9 Dorsalgia, unspecified; K76.89 Other specified diseases of liver; M10.9 Gout, unspecified; G89.29 Other chronic pain; E66.9 Obesity, unspecified; B95.7 Other staphylococcus as the cause of diseases classified elsewhere; Z99.81 Dependence on supplemental oxygen; Z68.31 Body mass index [BMI] 31.0-31.9, adult
CPT/HCPCS: 36415; 71045-TC-FY; 71275-TC; 76705-TC; 80048; 80053; 82550; 82553; 82803; 83735; 84100; 84484; 85025; 85027; 85379; 85610; 85730; 86140; 87040; 87804; 94010; 94640; 94660; 94761; 99291; C9803-CS; G0480; J1100; Q9967; U0003; U0005

== ENCOUNTER 2022-03-18 04:20 | Inpatient (IN) | payer BC ==
[2022-03-18] MEDS ORDERED: HEPARIN NA (PORCINE) 5,000 UNITS/ML 1ML VIAL ONE ×3 (07:19→09:44)
[2022-03-18] MEDS ORDERED: LIDOCAINE HCL 0.5%, 5 MG/ML (50mL SDVIAL) ONE ×2 (07:19→07:20)
[2022-03-18] MEDS ORDERED: MIDAZOLAM HCL 2 MG/2 ML SINGLE DOSE VIAL ONE ×2 (07:45→09:55)
[2022-03-18] MEDS ORDERED: FENTANYL CITRATE/PF 50 MCG/ML VIAL ONE ×7 (07:45→11:10)
[2022-03-18] MEDS ORDERED: ROCURONIUM BROMIDE 50 MG/5 ML SYRINGE ONE (07:45)
[2022-03-18] MEDS ORDERED: PROPOFOL 20 ML ONE ×2 (07:45)
[2022-03-18] MEDS ORDERED: ETOMIDATE 20 MG/10 ML AMPUL IVPUSH ONE (07:48)
[2022-03-18] MEDS ORDERED: DEXAMETHASONE SOD PHOSPHATE 4 MG/1 ML VIAL ONE (08:17)
[2022-03-18] MEDS ORDERED: CLINDAMYCIN PHOSPHATE 600 MG/4 ML VIAL ONE (08:17)
[2022-03-18] MEDS ORDERED: CLINDAMYCIN 900 MG PREMIX BAG IVPB ONE (08:18)
[2022-03-18] MEDS ORDERED: POVIDONE-IODINE OINTMENT 10% - 28.4 GM TUBE ONE (10:10)
[2022-03-18] MEDS ORDERED: ACETAMINOPHEN INJECTION 100 ML IVPB ONE (10:10)
[2022-03-18] MEDS ORDERED: PROTAMINE SULFATE 50 MG/5 ML VIAL ONE (10:20)
[2022-03-18] MEDS ORDERED: GLYCOPYRROLATE 0.2 MG/1 ML VIAL ONE (10:24)
[2022-03-18] MEDS ORDERED: NEOSTIGMINE METHYLSULFATE 0.5 MG/ML - 10 ML MDV ONE (10:25)
[2022-03-18] MEDS ORDERED: METOPROLOL TARTRATE 5 MG/5 ML VIAL ONE ×2 (10:28→10:34)
[2022-03-18] MEDS ORDERED: hydrALAZINE HCL 20 MG/ML VIAL ONE (10:43)
[2022-03-18] MEDS ORDERED: ONDANSETRON 4 MG/2 ML VIAL IVPUSH PRN ×2 (10:56→11:23)
[2022-03-18] MEDS ORDERED: PROMETHAZINE HCL 25 MG/1 ML VIAL IVPUSH PRN (10:56)
[2022-03-18] MEDS ORDERED: LACTATED RINGERS SOLUTION 1,000 ML IV SCH (11:00)
[2022-03-18] MEDS ORDERED: SODIUM CHLORIDE 1,000 ML IV SCH ×2 (11:15→18:50)
[2022-03-18] MEDS ORDERED: oxyCODONE HCL 5 MG TABLET PO PRN (11:24)
[2022-03-18] MEDS ORDERED: ACETAMINOPHEN 1000 MG/100 ML BAG IVPB ONE ×2 (11:36→12:00)
[2022-03-18] MEDS ORDERED: ARTIFICIAL TEARS (POLYVINYL ALCOHOL) OPTH DROPS OU ONE (13:19)
[2022-03-18 18:45] VITALS: BMI 30.5
[2022-03-18] MEDS: CLINDAMYCIN 900 MG PREMIX IVPB 900 MG/50 ML BAG IVPB SCH ×2 (18:47→18:48)
[2022-03-18] MEDS: ACETAMINOPHEN 500 MG TABLET (FP) PO SCH ×2 (18:50→23:23)
[2022-03-18] MEDS: MUPIROCIN 2% TOPICAL OINTMENT FOR DECOLONIZATION NS SCH ×2 (21:55→22:04)
[2022-03-18] MEDS: CLOPIDOGREL BISULFATE 75 MG TABLET (FP) PO SCH (21:55)
[2022-03-18] MEDS ORDERED: HEPARIN NA (PORCINE) 5,000 UNITS/ML 1ML VIAL SQ SCH (22:00)
[2022-03-18] MEDS ORDERED: CHLORHEXIDINE GLUCONATE 4% CLEANSER FOR DECOLONIZATION TP SCH (22:00)
[2022-03-19] MEDS: ASPIRIN 81 MG CHEWABLE TABLETS PO SCH ×2 (01:40→09:14)
[2022-03-19] MEDS ORDERED: ASPIRIN 81 MG CHEWABLE TABLETS ONE (01:43)
[2022-03-19] MEDS: ACETAMINOPHEN 500 MG TABLET (FP) PO SCH ×2 (01:59→08:30)
[2022-03-19] MEDS ORDERED: CLINDAMYCIN 900 MG PREMIX IVPB 900 MG/50 ML BAG IVPB SCH (02:00)
[2022-03-19 07:36] LABS: BASO % 0.2 % (0-2.0); EOS % 0.3 % (0-4.5); HEMATOCRIT 39.5 % (35.4-49); HEMOGLOBIN 13.1 GM/dL (11.7-16.9); LYMPH % 15.5 % (8-40); MCHC 33.2 g/dl (32.0-35.9); MEAN CELL VOLUME 81.3 fl (80-96); MEAN PLT VOLUME 7.7 fl (7.5-11.1); MONO % 9.1 % (3.8-10.2); NEUT % 74.9 % (42.8-82.8); PLATELET COUNT 206 10^3/uL (134-434); RBC 4.86 M/mm3 (4.00-5.60); RDW 15.9 % (11.9-15.9); WHITE BLOOD COUNT 10.9 K/mm3 (4.0-10.0)
[2022-03-19 08:01] LABS: CALCIUM 9.1 mg/dL (8.5-10.1)
[2022-03-19 08:02] LABS: BLOOD UREA NITROGEN 13.6 mg/dL (7-18)
[2022-03-19] MEDS: MUPIROCIN 2% TOPICAL OINTMENT FOR DECOLONIZATION NS SCH (09:14)
[2022-03-19] MEDS: CLOPIDOGREL BISULFATE 75 MG TABLET (FP) PO SCH (09:15)
[2022-03-19] MEDS ORDERED: amLODIPine BESYLATE 5 MG TABLET (FP) PO SCH (10:00)
[2022-03-19] MEDS ORDERED: FLUTICASONE/UMECLIDIN/VILANTER(100-62.5-25 TRELEGY ELLIPTA) INAHLER IH SCH (10:00)
[2022-03-19] MEDS ORDERED: FLUoxetine HCL 10 MG CAPSULE PO SCH (10:00)
[2022-03-19] MEDS ORDERED: LOSARTAN POTASSIUM 25 MG TABLET PO SCH (10:00)
[2022-03-19] MEDS ORDERED: NEBIVOLOL 5 MG TABLET (FP) PO SCH (10:00)
[2022-03-19 18:39] VITALS: BP 137/73; PULSE 83; TEMP 98.4
[2022-03-19] MEDS ORDERED: ASPIRIN 81 MG CHEWABLE TABLETS PO SCH (22:00)
== END 2022-03-19 11:58 | disposition home or self-care (01) | DRG 39 ==
LOC: J2C 04:20 → JICU 13:13
PROVIDERS: ADMIT Surgery; ATTEND Surgery
PROC: 03CL0ZZ Extirpation of Matter from Left Internal Carotid Artery, Open Approach (ICD-10-PCS; principal; 2022-03-18 08:00)
DX: I65.22 Occlusion and stenosis of left carotid artery (principal); E66.3 Overweight; Z68.30 Body mass index [BMI] 30.0-30.9, adult; G47.30 Sleep apnea, unspecified
CPT/HCPCS: 36415; 80048; 85025; 86850; 86900; 86901; 88304-TC; 94760; J1644

== ENCOUNTER → 2024-06-28 | Day surgery (SDC) | payer OTHER, BC | END | disposition home or self-care (01) | LOC: JRADUS-SUR 08:57 | PROVIDERS: ATTEND Specialist | PROC: 0HBU3ZX Excision of Left Breast, Percutaneous Approach, Diagnostic (ICD-10-PCS; principal; 2024-06-28) | DX: Z53.8 Procedure and treatment not carried out for other reasons (principal); N62 Hypertrophy of breast | CPT/HCPCS: 19083; 77066-TC; G0279-TC ==